=== PATIENT | male | born 1930 | race Caucasian/White ===

== ENCOUNTER 2016-09-05 14:32 | Emergency (ER) | payer MEDICARE ==
[~2016-09-05] VITALS: Ht 182.9 cm; Wt 86.4 kg
[~2016-09-05 14:32] MED LIST: AMLO-39 PO; DOCU250C2 PO; LEVO750T39 PO; LOV120 SUBQ; METO50TA3 PO; Nystatin PO
[2016-09-05 14:46] VITALS: BP 177/71; PULSE 57; RESP 20; O2SAT 96
--- NOTE | 2016-09-05 15:11 | ED.REPORT ---
HPI-Trauma Minor / Fall Date of Service Sep 05, 2016 ED Provider: Dr. Stefan Giraldo M.D. An 86 year old male with a medical history including thromboembolic disease, hypertension, and DVT on daily ASA presents to the ED accompanied by his son with head trauma after tripping while walking up stairs just prior to arrival. The patient hit the left side of his face on the deck and now reports left- sided facial pain, with a laceration above his left brow. The patient and his son deny LOC, vomiting, confusion, headache, or other symptoms. The patient has had similar falls in the past. Nursing Notes Stated Complaint: FALL/HEAD LACERATION Chief Complaint: Head, Face, Neck Trauma Nursing Notes Reviewed: Yes Allergies: Coded Allergies: No Known Allergies (Verified Allergy, Unknown, 05/02/14) Scheduled ([Nystatin]) 500,000 UNIT/5 ML SUSP 500,000 UNIT PO PCHS Amlodipine (Norvasc) 5 Mg Tablet 5 MG PO DAILY Docusate Sodium (Docusate Sodium) 250 Mg Capsule 250 MG PO BID Enoxaparin (Lovenox) 120 Mg/0.8 Ml Syringe 120 MG SUBQ DAILY Levofloxacin (Levofloxacin) 750 Mg Tablet 750 MG PO DAILY Metoprolol Tartrate (Metoprolol Tartrate) 50 Mg Tablet 50 MG PO BID General Time Seen by MD: 15:11 Chief Complaint Fall, Face injury Hx Obtained From: Patient, Son Arrived By: Walk-in Onset Occurred: Just prior to arrival Symptom Duration: Since onset Caused by: Accidental Location: Face Quality: Painful Severity: Current: Moderate Severity: Maximum: Moderate Pertinent Negative: Relieved by nothing Context: Immunizations Unknown Recent Healthcare: No recent doctor visit Similar Sx Previous: Yes Past Medical History Past Medical History 1. Thromboembolic disease. 2. Traumatic left shoulder rotator cuff tear and multiple left shoulder tendon tears while on anticoagulant therapy. a. Left shoulder hematoma. b. Acute volume loss due to left shoulder soft tissue bleeding. 3. Syncope due to acute volume loss (02/25/2014). 4. Gram-positive (Staphylococcus aureus) sepsis (02/27/2014). 5. Acute kidney injury. a. 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 b. Consider acute tubular necrosis due to sepsis, but no other sequela. 6. Hypokalemia in the context of interstitial nephritis. 7. Anemia. a. Acute blood loss anemia due to soft tissue bleeding (02/25/2014). b. Anemia of chronic disease (Staphylococcal sepsis). 8. Pancreatic cystic mass of uncertain etiology. CT of the abdomen (02/27/2014) showed an exophytic low density focus protruding superiorly from the pancreatic body/tail junction (20 mm diameter). This lesion demonstrates precontrast Hounsfield units of 1, and post contrast Hounsfield units of 15, suggestive of enhancement. No pancreatic ductal dilatation. No other lesions within the pancreas. No pancreatic calcifications. 9. Asymptomatic candiduria (03/17/2014). 10. Moderate protein calorie malnutrition. 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 Colonoscopy (03/03/2014) was essentially normal. Pseudo-obstruction resolved. 12. Severe deconditioning. 13. sepsis 14. rash 15. DVT Reports: Hypertension Past Surgical History Inguinal hernia: 1969 Smoking History Never Smoker Social History Alcohol Use: Denies alcohol use Drug Use: Denies drug use Other Social History: Good social support, , Lives in [facility] Ambulatory Status Cane Review of Systems Review of Systems Note: + Head trauma, left-sided facial pain, laceration above left brow Constitutional: Denies: Fever Respiratory: Denies: Non-productive cough, Shortness of breath Neurologic: Denies: Change LOC, Confusion, Headache Complete sys rev & neg: except as marked. GI: Denies: Nausea, Vomiting Physical Exam Initial Vital Signs Vital Signs (First) Date Time Temp Pulse Resp B/P Pulse Ox O2 Delivery O2 Flow Rate FiO2 09/05/16 14:46 36.1 57 20 177/71 96 Room Air Initial VS: Reviewed Skin: Warm, Dry, No cyanosis Psychiatric: Mood/affect normal, Behavior normal, Normal thought content General/Constitutional: Awake, Alert, No acute distress Answering questions appropriately Neck: Supple, Full range of motion, Non-tender Head / Eyes: Normocephalic, PERRL (3mm bilaterally) Trauma - General: Positive: Abrasion (Overlying laceration), Laceration (3cm, oozing blood, about left forehead just above brow extending down to subcutaneous tissue, no galea involvement) Scalp atraumatic ENT: Atraumatic (No interoral or dental trauma), Airway patent, Mucous membranes moist Respiratory / Chest: Atraumatic, Breath sounds NL, Breath sounds = bilat, No respiratory distress Cardiovascular: Heart rate NL, Regular rhythm, Heart sounds NL, No gallop, No murmurs, No rubs, Peripheral circulation NL (Good radial pulses) Abdomen: Atraumatic, Soft, Non-tender, No distention Back: Atraumatic, Inspection NL, No midline vertebral tend Flank / Spine / Paraspinal: Positive: Lumbar paraspinal tend... (Mild, left) Upper Extremity / MS: Inspection NL, Full range of motion, Neurologic intact, Vascular intact (Good distal pulses) 4cm x 5cm skin tear to left lateral upper arm Lower Extremity / Pelvis / MS: Atraumatic, Inspection NL, Full range of motion Neurologic: Oriented X3, Speech NL, No motor deficits, No sensory deficits Interpretation & Diagnostics CT Head Interpretation IMPRESSION: 1. No acute intracranial process. 2. Moderate atrophy and chronic microvascular ischemic changes. 3. Small left frontal scalp laceration. Dictated by: Rosamaria Gomez M.D. on 09/05/2016 at 15:55 Study: Head CT no contrast Interpretation / Wet Read by: Interpret - Radiologist Procedures Laceration Management Time: 16:45 Procedure Performed by: Allied health pract ([facility]IL[facility]) Consent / Setup / Site Prep: Consent from patient, Time-out performed, Hand hygiene observed, Stand sterile technique Location of Wound: Left forehead just above brow extending down to subcutaneous tissue Wound Length: 3 cm Local Anesthesia: Lidocaine w epi 1% (3mL) Wound Preparation: Normal saline Debridement: None Irrigation: 250 cc Foreign Body Explore / Removal: Explored for foreign body Repair Skin: ___ O (6), Nylon # Sutures - Skin: 8 Closure Layers: 1 Suture Technique: Simple Post-Procedure / Complications: Antibiotic oint applied, Dressing applied, No complications, Condition improved, Tolerated procedure well, Patient stable Laceration Management: Used Steri-Strips Time: 16:45 Procedure Performed by: Allied health pract ([facility]IL[facility]) Consent / Setup / Site Prep: Consent from patient, Time-out performed, Hand hygiene observed, Stand sterile technique Location of Wound: 4cm x 5cm skin tear to left lateral upper arm Wound Preparation: Normal saline Irrigation: Copious Closure Layers: 1 Post-Procedure / Complications: Antibiotic oint applied, Dressing applied, No complications, Condition improved, Tolerated procedure well, Patient stable Re-Eval/Medical Decision Med Decision/Clinical Course Patient is an 86-year-old male in relatively good health who presents to the emergency department with his son for evaluation of a left forehead laceration and left arm skin tear after sustaining a mechanical ground-level fall. He is on aspirin though he does not take any other blood thinners. He did not lose consciousness after the fall and he has not had any vomiting or altered mental status. Here in the emergency department he is afebrile with stable vital signs , normal neurologic assessment and examination as above. Of note he has a significant laceration to his left forehead but no other signs of trauma and neck without midline cervical tenderness, bony deformity or limited range of motion. CT scan of the head demonstrates no acute intracranial process or hemorrhage. His tetanus status was updated. His wound was anesthetized using lidocaine and copiously irrigated. His forehead laceration was repaired as documented above. His skin tear was approximated to the best of our efforts using Steri-Strips. He tolerated the procedures well. He currently resides at an assisted living facility and nursing staff there will be able to remove his sutures in 5-7 days. He is advised to return immediately for any headache, confusion, vomiting, weakness or signs of infection. Prior to discharge follow- up and return precautions were reviewed in detail with the patient and his son who verbalized understanding and agreement with the plan. The patient was discharged in stable condition. Source of Hx: Old records Re-Evaluation/Progress : Time of Eval: 15:53 Patient Status: Condition improved Re-Evaluation/Progress Note: Discussed with patient CT results, diagnosis, and plan for discharge after laceration repair. Follow-up and return to the ER instructions given. Patient agrees with plan for care and all questions were addressed. Counseled Regarding: Diagnosis, Need for follow-up, When/why to return to ED Discharge & Departure Impression: Primary Impression: Laceration of forehead Encounter type: initial encounter Qualified Code: S01.81XA - Laceration without foreign body of other part of head, initial encounter Additional Impressions: Fall from ground level Abrasion of forehead Encounter type: initial encounter Qualified Code: S00.81XA - Abrasion of other part of head, initial encounter Disposition: Home Discharge Condition All VS Reviewed: Yes Condition: Improved Patient Instructions: Laceration (ED) Additional Instructions: Thank you for seeking care at the emergency room. You were seen today for a forehead laceration after a ground level fall. Our primary goal today in the ED was to evaluate you for any life-threatening conditions. Your evaluation was reassuring. Your stitches will need to be removed in 7-10 days. The nurses at your assisted living facility can do this. You should follow-up with your primary doctor in the next week. You should return to the ED immediately if you develop redness, swelling, fevers , confusion, vomiting, cough, shortness of breath, chest pain, lightheadedness, weakness or any other concerning signs or symptoms. Thank you for letting us partake in your care today. Referrals: Adalgisa Herrera MD (PCP) Scribe Attestation Portions of this note were transcribed by Shelli Marcos. I, Dr. Giraldo, personally performed the history, physical exam, and medical decision-making; I reviewed and confirmed the accuracy of the information in the transcribed note. Signed by: Herminia Freedman, 09/05/2016, 17:40 copies to: Adalgisa Herrera MD, Beck O MD Sep 05, 2016 15:11 SHELLI MARCOS Sep 05, 2016 15:34
[2016-09-05] MEDS ORDERED: Lidocaine 1%/Epi 1:100,000 30 mL MDV SUBQ ONE (15:15)
[2016-09-05] MEDS ORDERED: TdaP Vaccine 0.5 mL Inj IM ONE (15:15)
[2016-09-05] MEDS ORDERED: Lidocaine 1%-Epi 1:100,000 20 mL Inj ONE (15:55)
--- NOTE | 2016-09-05 15:58 | DRSVH ---
PROCEDURE: CT BRAIN WITHOUT CONTRAST ([id number]) INDICATIONS: trauma TECHNIQUE: Noncontrast 4.5 mm thick angled axial sections acquired from the foramen magnum to the vertex, with c oronal reformats. COMPARISON: None. FINDINGS: Image quality: Excellent. CSF spaces: Basal cisterns are patent. No extra-axial fluid collections. The ventricles are symmet jesus manuel in size and shape. Brain: No intracranial bleeds or masses. There is cerebral volume loss for age, with resultant vent ricular and sulcal prominence. There are periventricular and deep white matter chronic small vessel ischemic changes. There is intracranial internal carotid artery atherosclerosis. Skull and face: Calvarium and visualized facial bones appear intact, without suspicious lesions. Sm all left frontal scalp laceration. Sinuses: Visualized sinuses and mastoids are clear. IMPRESSION: 1. No acute intracranial process. 2. Moderate atrophy and chronic microvascular ischemic changes. 3. Small left frontal scalp laceration. Dictated by: Rosamaria Gomez M.D. on 09/05/2016 at 15:55 Approved by: Rosamaria Gomez M.D. on 09/05/2016 at 15:56
== END 2016-09-05 17:35 | disposition home or self-care (01) ==
LOC: SED 14:32
DX: S01.81XA Laceration without foreign body of other part of head, initial encounter (principal); S00.81XA Abrasion of other part of head, initial encounter; W10.8XXA Fall (on) (from) other stairs and steps, initial encounter; Y93.01 Activity, walking, marching and hiking; Y92.89 Other specified places as the place of occurrence of the external cause; Y99.8 Other external cause status; I10 Essential (primary) hypertension; Z86.19 Personal history of other infectious and parasitic diseases; Z79.899 Other long term (current) drug therapy; Z23 Encounter for immunization

== ENCOUNTER 2016-09-15 22:02 | Inpatient (IN) | payer MEDICARE ==
[~2016-09-15] VITALS: Ht 182.9 cm; Wt 81.9 kg
--- NOTE | 2016-09-15 22:02 | ED.REPORT ---
HPI-General Illness Date of Service September 15, 2016 ED Provider: Caden Patel MD 86 year old Prednisone-dependent male with a history of DVT, previously on anticoagulation therapy presents to the ER via EMS from [facility] due to generalized weakness onset today. Patient is independently ambulatory at baseline but states that he has lately been unable to walk due to profound weakness. He denies chest pain, nausea, vomiting, cough , changes in vision, abdominal pain, and changes in bowel or urinary habits. Nurses at [place] deny any known recent illness, or fever. BP in the 180's en route. He takes 20mg Prednisone daily for his arthritis. Nursing Notes Stated Complaint: WEAKNESS Nursing Notes Reviewed: Yes Allergies: Coded Allergies: No Known Allergies (Verified Allergy, Unknown, 05/02/14) Scheduled Amlodipine (Norvasc) 5 Mg Tablet 5 MG PO DAILY Enoxaparin (Lovenox) 120 Mg/0.8 Ml Syringe 120 MG SUBQ DAILY Metoprolol Tartrate (Metoprolol Tartrate) 50 Mg Tablet 50 MG PO BID General Time Seen by MD: 22:01 Chief Complaint Weakness Hx Obtained From: Patient, EMS Arrived By: Ambulance Sudden in Onset?: No Onset Occurred: 5 - 8 hours ago Symptom Duration: Since onset Pertinent Negative: Pt denies other symptoms Similar Sx Previous: No Past Medical History Past Medical History 1. Thromboembolic disease. 2. Traumatic left shoulder rotator cuff tear and multiple left shoulder tendon tears while on anticoagulant therapy. a. Left shoulder hematoma. b. Acute volume loss due to left shoulder soft tissue bleeding. 3. Syncope due to acute volume loss (02/25/2014). 4. Gram-positive (Staphylococcus aureus) sepsis (02/27/2014). 5. Acute kidney injury. a. 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 b. Consider acute tubular necrosis due to sepsis, but no other sequela. 6. Hypokalemia in the context of interstitial nephritis. 7. Anemia. a. Acute blood loss anemia due to soft tissue bleeding (02/25/2014). b. Anemia of chronic disease (Staphylococcal sepsis). 8. Pancreatic cystic mass of uncertain etiology. CT of the abdomen (02/27/2014) showed an exophytic low density focus protruding superiorly from the pancreatic body/tail junction (20 mm diameter). This lesion demonstrates precontrast Hounsfield units of 1, and post contrast Hounsfield units of 15, suggestive of enhancement. No pancreatic ductal dilatation. No other lesions within the pancreas. No pancreatic calcifications. 9. Asymptomatic candiduria (03/17/2014). 10. Moderate protein calorie malnutrition. 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 Colonoscopy (03/03/2014) was essentially normal. Pseudo-obstruction resolved. 12. Severe deconditioning. 13. sepsis 14. rash 15. DVT Reports: Hypertension Past Surgical History Inguinal hernia: 1970 Smoking History Never Smoker Social History Alcohol Use: Denies alcohol use Drug Use: Denies drug use Other Social History: Good social support, , Lives in [facility] Ambulatory Status Cane Review of Systems Full Review of Systems Constitutional: Reports: Weakness - generalized, Denies: Chills, Fever Respiratory: Denies: Non-productive cough, Shortness of breath Cardiovascular: Denies: Chest pain GI: Denies: Abdominal pain, Constipation, Diarrhea, Nausea, Vomiting Male: Denies Dysuria, Denies Hematuria Complete sys rev & neg: except as marked. Physical Exam Vital Signs Vital Signs Date Time Temp Pulse Resp B/P Pulse Ox O2 Delivery O2 Flow Rate FiO2 09/16/16 00:03 63 13 172/45 96 Room Air 09/15/16 22:05 36.9 67 18 182/53 98 Initial VS: Reviewed Neck: Supple, Non-tender, Full range of motion Abdomen / GI: Soft, Non-tender, No guarding, No rebound, No distention Skin: Warm, Dry, No cyanosis Neurologic: Alert, Oriented, Nonfocal General/Constitutional: Awake, Alert, Well developed Respiratory / Chest: Breath sounds NL, No respiratory distress, No rales, No rhonchi, No wheezing Cardiovascular: Heart rate NL, No murmurs Heart Rate / Rhythm: Positive: Irregular rhythm Lower Ext Edema: Positive: Bilateral 1+ Upper Extremities Upper Extremity / MS: Full range of motion, Neurologic intact, Vascular intact Arthritic changes of the joints. Wrist / Hand: Full range of motion, Neurologic intact, Vascular intact Arthritic changes of the joints. Lower Extremity / Pelvis / MS: Full range of motion, Neurologic intact, Vascular intact Arthritic changes of the joints. Interpretation & Diagnostics Lab Results Interpretation Result Diagram: 09/15/16 2210 09/15/16 2210 Test 09/15/16 22:10 09/16/16 00:00 White Blood Count 12.4th/mm3 (3.8-10.1) Red Blood Count 5.05mil/mm3 (4.40-5.80) Hemoglobin 15.1g/dL (13.8-17.2) Hematocrit 43.4% (41.0-50.0) Mean Corpuscular Volume 85.9fL (81-100) Mean Corpuscular Hemoglobin 29.9pg (27.0-35.0) Mean Corpuscular Hemoglobin Concent 34.8% (32.0-37.0) Red Cell Distribution Width 13.3% (12.3-15.4) Platelet Count 267bil/L (150-400) Neutrophils (%) (Auto) 75.4% (40-74) Lymphocytes (%) (Auto) 16.9% (14-46) Monocytes (%) (Auto) 6.9% (4-12) Eosinophils (%) (Auto) 0.2% (0-5) Basophils (%) (Auto) 0.2% (0-3) Hold Purple Top Tube Received (Received) Hold Blue Top Tube Received (Received) Sodium Level 139mEq/L (134-144) Potassium Level 4.1mEq/L (3.5-5.2) Chloride Level 103mEq/L (97-108) Carbon Dioxide Level 22mmol/L (18-29) Blood Urea Nitrogen 28mg/dL (8-27) Creatinine 1.07mg/dL (0.76-1.27) Estimat Glomerular Filtration Rate 69mL/min (>59) Glucose Level 104mg/dL (60-99) Lactic Acid Level 1.1mmol/L (0.4-2.0) Uric Acid 6.4mg/dL (2.6-7.2) Calcium Level 9.0mg/dL (8.5-10.1) Magnesium Level 2.0mg/dL (1.6-2.6) Total Bilirubin 0.7mg/dL (0.0-1.2) Aspartate Amino Transf (AST/SGOT) 14U/L (0-50) Alanine Aminotransferase (ALT/SGPT) 7U/L (0-44) Alkaline Phosphatase 45U/L (25-160) Ammonia 34ug/dL (18-53) Troponin T 0.026ug/L (0.0-0.011) Total Protein 6.3g/dL (6.4-8.4) Albumin 3.8g/dL (3.4-5.0) Thyroid Stimulating Hormone (TSH) 2.360uIU/mL (0.450-4.500) Hold Red Top Tube Received (Received) Hold Forbes Top Tube Received (Received) Alcohols < 10mg/dL (0-10) Urine Color Yellow (YELLOW) Urine Appearance Clear (CLEAR,HAZY) Urine pH 6.5 (5.0-8.0) Urine Specific [place] 1.015 (1.003-1.035) Urine Protein Negativemg/dL (NEG,TRACE) Urine Glucose (UA) Negativemg/dL (NEGATIVE) Urine Ketones Negativemg/dL (NEGATIVE) Urine Occult Blood Negative (NEGATIVE) Urine Nitrite Negative (NEGATIVE) Urine Bilirubin Negative (NEGATIVE) Urine Urobilinogen 1.0mg/dL (NORMAL) Urine Leukocyte Esterase Negative (NEGATIVE) Urine RBC 0-2/hpf (0-2) Urine WBC 0-5/hpf (0-5) Urine Epithelial Cells Occasional/hpf (NONE-MOD) Urine Crystals None seen (NONE SEEN) Urine Bacteria None/hpf (NONE-FEW) Urine Hyaline Casts None/lpf (NONE) Urine Granular Casts None seen (NONE SEEN) Urine Waxy Casts None seen (NONE SEEN) Urine Red Blood Cell Casts None seen (NONE SEEN) Urine White Blood Cell Casts None seen (NONE SEEN) Urine Mucus None seen (None Seen) Urine Trichomonas None seen (NONE SEEN) Urine Yeast None (NONE SEEN) Urinalysis Comment None Urine Culture Reflexed Not indicated ECG Interpretation ECG Interpretation: Nonspecifc ST T wave changes infralaterally [id number] Time: 22:55 Interpreted by: ED physician X-Ray Chest Interpretation Chest Xray Interpretation: No explaination for weakness on acquired film. Heart size is borderline. Nothing acute. View: Portable, 1 view Interpretation / Wet Read by: Wet read ED physician CT Head Interpretation CONCLUSION: Moderate, chronic, age-related findings. Nonspecific ethmoid and maxillary sinus disease, likely chronic. No acute intracranial abnormality. Electronically signed by Joanna Cesar MD Study: Head CT no contrast Interpretation / Wet Read by: Interpret - Radiologist Re-Eval/Medical Decision Med Decision/Clinical Course 86-year-old fairly functional man presents with loss of ambulation and generalized weakness today. He was functioning pre-well in assisted living yesterday, with full ADLs and minimal assistance. Today, he is required to her tenderness to get him up and walking and he is unable walk unassisted even once gotten onto his feet. Apparently, he is not in atrial fibrillation known in the past. He is an age fibrillation on arrival here, though at a controlled rate. He has some mild edema of his legs. I suspect that loss of atrial kick has been the cause of his physical decline. He is admitted now for completion of rule out protocol, initially negative, and echocardiography this morning to evaluate cardiac function and chamber size. He was intolerant of Coumadin in the past, with significant skin bleeding and scarring, and would therefore defer anticoagulation at this point. Additionally, he has had multiple falls in the last month, at least three or four that the family knows of. This renders him a higher risk candidate for anticoagulation additionally. CT of the cranium was negative, and his neck is negative to palpation. However, he has a large scab on his left forehead sustained in a fall a week ago. Source of Hx: Old records Time of Eval: 01:21 Re-Evaluation/Progress Note: Discussed lab and imaging results and need for admission. Patient is amenable to the plan. All other questions addressed. Consultation : Referral / Consult Name: Yuriy Curiel MD Consulted With: Hospitalist Call Returned at: 01:46 Jailor: Agrees with eval, Agrees with plan, Accepts admit Counseled Regarding: Diagnosis, Lab results, Need for admission Discharge & Departure Primary Impression: New onset atrial fibrillation Additional Impressions: Weakness Abrasion of forehead Multiple falls Disposition: ADMITTED TO HOSPITAL Discharge Condition All VS Reviewed: Yes Condition: Stable Referrals: Adalgisa Herrera MD (PCP) Herminia Attestation Portions of this note were transcribed by Marv Wahl. I, Dr. Patel, personally performed the history, physical exam and medical decision-making; I reviewed and confirmed the accuracy of the information in the transcribed note. Signed by: Herminia Beckett, 09/16/2016 at 01:46 copies to: Adalgisa Herrera MD, Christopher W MD September 15, 2016 22:02 MARV WAHL September 15, 2016 22:09
[2016-09-15 22:05] VITALS: BP 182/53; PULSE 67; RESP 18; O2SAT 98
[2016-09-15 22:18] LABS: BASOPHILS % (AUTO) 0.2 % (0-3); EOSINOPHILS % (AUTO) 0.2 % (0-5); MONOCYTES % (AUTO) 6.9 % (4-12); Mean Corpuscular Hemoglobin 29.9 pg (27.0-35.0); Mean Corpuscular Volume 85.9 fL (81-100); NEUTROPHILS % (AUTO) 75.4 % (40-74); Platelet Count 267 bil/L (150-400)
[2016-09-16] VITALS (11 sets, daily range): BP systolic 114–176; BP diastolic 45–69; PULSE 52–76; RESP 13–27; O2SAT 93–100
[2016-09-16 00:20] LABS: APPEARANCE,URINE CLEAR (CLEAR,HAZY); COLOR,URINE YELLOW (YELLOW); OCCULT BLOOD,URINE NEGATIVE (NEGATIVE); PH,URINE 6.5 (5.0-8.0)
[2016-09-16] MEDS ORDERED: Polyethylene Glycol (PEG) 17 Gm Powder PO PRN (01:50)
[2016-09-16] MEDS ORDERED: Alum-Mag Hydrox-Simeth 30 mL Suspension PO PRN (01:50)
[2016-09-16] MEDS ORDERED: Ondansetron 2 mg/mL 2 mL Inj IVPUSH PRN (01:50)
--- NOTE | 2016-09-16 04:43 | PCM.HPMED ---
Subjective Date of Service September 16, 2016 Primary Provider: Admitting Physician: Primary Care Physician: Adalgisa Herrera MD Attending Physician: Admit Status: From the Emergency Department, Full Admit, [facility] Telemetry Chief Complaint: Acute weakness History of Present Illness: Kuldeep Mccartney 86 year old male with Thromboembolic disease with DVT, Hypertension , who presents to [facility] emergency department via EMS from [facility] due to generalized weakness onset today. Patient is independently ambulatory at baseline but states that he has lately been unable to walk due to profound weakness within the last 3 days. He denies chest pain, nausea, vomiting, cough, changes in vision, abdominal pain, and changes in bowel or urinary habits. Nurses at [facility] deny any known recent illness, or fever. BP in the 180's en route. No new medications started. Patient seems to think its old age and deconditioning. He denies any palpitations. Case discussed with Dr Patel, EKG showed Atrial fibrillation (new) and will be admitted to workup cause of weakness Review of Systems: Pertinent positives as noted in HPI. All other systems were reviewed and are negative Allergies Coded Allergies: No Known Allergies (Verified Allergy, Unknown, 05/02/14) Home Medications From [facility], not yet confirmed Kuldeep Mccartney N. [id number] 1930 05/21/2016 09:10 AM Page: 05/13 Acidophilus capsule 2tabs 2 times daily amlodipine 5 mg tablet take 1 tablet by oral route every day clobetasol 0.05 % topical solution apply by topical route 2 times every day to the affected scalp area in the morning and evening docusate sodium 250 mg capsule take 1 capsule by oral route 2 times every day dronabinol 2.5 mg capsule take 2.5 milligram by oral route 2 times every day fluocinonide 0.05 % topical ointment apply by topical route 2 times every day to the affected area(s) Klor-Con M20 mEq tablet,extended release take 1 tablet by oral route 2 times every day with food Lovenox 120 mg/0.8 mL subcutaneous syringe inject 120 mg by subcutaneous route every day subcutaneously metoprolol tartrate 50 mg tablet take 1 tablet by oral route 2 times every day with meals mirtazapine 7.5 mg tablet take 2 tablet by oral route every day at bedtime PMH 1. Thromboembolic disease. 2. Traumatic left shoulder rotator cuff tear and multiple left shoulder tendon tears while on anticoagulant therapy. a. Left shoulder hematoma. b. Acute volume loss due to left shoulder soft tissue bleeding. 3. Syncope due to acute volume loss (02/25/2014). 4. Gram-positive (Staphylococcus aureus) sepsis (02/27/2014). 5. Acute kidney injury. a. 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 b. Consider acute tubular necrosis due to sepsis, but no other sequela. 6. Hypokalemia in the context of interstitial nephritis. 7. Anemia. a. Acute blood loss anemia due to soft tissue bleeding (02/25/2014). b. Anemia of chronic disease (Staphylococcal sepsis). 8. Pancreatic cystic mass of uncertain etiology. CT of the abdomen (02/27/2014) showed an exophytic low density focus protruding superiorly from the pancreatic body/tail junction (20 mm diameter). This lesion demonstrates precontrast Hounsfield units of 1, and post contrast Hounsfield units of 15, suggestive of enhancement. No pancreatic ductal dilatation. No other lesions within the pancreas. No pancreatic calcifications. 9. Asymptomatic candiduria (03/17/2014). 10. Moderate protein calorie malnutrition. 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 Colonoscopy (03/03/2014) was essentially normal. Pseudo-obstruction resolved. 12. Severe deconditioning. 13. sepsis 14. rash 15. DVT 16. Hypertension . Surgical History Inguinal hernia: 1970 Social History Hx Alcohol Use: No Hx Substance Use: No Hx Tobacco Use: No Smoking Status: Never Smoker Living Arrangement: Assisted Living ([place]) Exam Vital Signs Vital Sign - Last Date Time Temp Pulse Resp B/P Pulse Ox O2 Delivery O2 Flow Rate FiO2 09/16/16 00:03 63 13 172/45 96 Room Air 09/15/16 22:05 36.9 Exam General: Alert, Oriented X3, Cooperative, No acute Distress Eyes: PERRLA, Scleral Anicteric Mouth: Mouth Normal, Mucous Membranes Moist/[place] Neck: Supple, no Thyromegaly, trachea central. Chest & Lungs: Clear to auscultation & percussion, No adventitious breath sounds, no crackles, no wheeze Cardiovascular: Normal S1, Normal S2, No Murmurs/Rubs/Gallops, Regular Rate/ Rhythm, Murmur, Other (No JVD, no peripheral edema) Pulses: Radial (present and equal), Dorsalis Pedi (present and equal) Abdomen: Soft, Non-tender, Non-distended, Normoactive bowel tones. Musculoskeletal: Unremarkable. Normal range of motion, no swollen or erythematous joints Extremities: No edema, no cyanosis, no clubbing. Skin: No rashes. Warm and dry, no erythematous areas Neurological: Grossly neurologically intact, has generalized weakness, Normal Speech, Sensation Intact Lymphatic: Lymph nodes Cervical and Axillary not palpable. Lab and Diagnostics Labs Laboratory Tests Test 09/15/16 22:10 09/16/16 00:00 White Blood Count 12.4th/mm3 (3.8-10.1) Red Blood Count 5.05mil/mm3 (4.40-5.80) Hemoglobin 15.1g/dL (13.8-17.2) Hematocrit 43.4% (41.0-50.0) Mean Corpuscular Volume 85.9fL (81-100) Mean Corpuscular Hemoglobin 29.9pg (27.0-35.0) Mean Corpuscular Hemoglobin Concent 34.8% (32.0-37.0) Red Cell Distribution Width 13.3% (12.3-15.4) Platelet Count 267bil/L (150-400) Neutrophils (%) (Auto) 75.4% (40-74) Lymphocytes (%) (Auto) 16.9% (14-46) Monocytes (%) (Auto) 6.9% (4-12) Eosinophils (%) (Auto) 0.2% (0-5) Basophils (%) (Auto) 0.2% (0-3) Hold Purple Top Tube Received (Received) Hold Blue Top Tube Received (Received) Sodium Level 139mEq/L (134-144) Potassium Level 4.1mEq/L (3.5-5.2) Chloride Level 103mEq/L (97-108) Carbon Dioxide Level 22mmol/L (18-29) Blood Urea Nitrogen 28mg/dL (8-27) Creatinine 1.07mg/dL (0.76-1.27) Estimat Glomerular Filtration Rate 69mL/min (>59) Glucose Level 104mg/dL (60-99) Lactic Acid Level 1.1mmol/L (0.4-2.0) Uric Acid 6.4mg/dL (2.6-7.2) Calcium Level 9.0mg/dL (8.5-10.1) Total Bilirubin 0.7mg/dL (0.0-1.2) Aspartate Amino Transf (AST/SGOT) 14U/L (0-50) Alanine Aminotransferase (ALT/SGPT) 7U/L (0-44) Alkaline Phosphatase 45U/L (25-160) Ammonia 34ug/dL (18-53) Total Protein 6.3g/dL (6.4-8.4) Albumin 3.8g/dL (3.4-5.0) Hold Red Top Tube Received (Received) Hold [place] Top Tube Received (Received) Alcohols < 10mg/dL (0-10) Urine Color Yellow (YELLOW) Urine Appearance Clear (CLEAR,HAZY) Urine pH 6.5 (5.0-8.0) Urine Specific [place] 1.015 (1.003-1.035) Urine Protein Negativemg/dL (NEG,TRACE) Urine Glucose (UA) Negativemg/dL (NEGATIVE) Urine Ketones Negativemg/dL (NEGATIVE) Urine Occult Blood Negative (NEGATIVE) Urine Nitrite Negative (NEGATIVE) Urine Bilirubin Negative (NEGATIVE) Urine Urobilinogen 1.0mg/dL (NORMAL) Urine Leukocyte Esterase Negative (NEGATIVE) Urine RBC 0-2/hpf (0-2) Urine WBC 0-5/hpf (0-5) Urine Epithelial Cells Occasional/hpf (NONE-MOD) Urine Crystals None seen (NONE SEEN) Urine Bacteria None/hpf (NONE-FEW) Urine Hyaline Casts None/lpf (NONE) Urine Granular Casts None seen (NONE SEEN) Urine Waxy Casts None seen (NONE SEEN) Urine Red Blood Cell Casts None seen (NONE SEEN) Urine White Blood Cell Casts None seen (NONE SEEN) Urine Mucus None seen (None Seen) Urine Trichomonas None seen (NONE SEEN) Urine Yeast None (NONE SEEN) Urinalysis Comment None Urine Culture Reflexed Not indicated Microbiology 09/15/16 Blood Culture, Received Pending Result Diagram: 09/15/16220909/15/162209 Assessment & Plan Kuldeep Mccartney 86 year old male with Thromboembolic disease with DVT, Hypertension , who presents to [facility] emergency department via EMS from [facility] assisted living facility due to generalized weakness 1. New Atrial fibrillation. Present on admission Etiology likely due to longstanding Hypertension and age. No rapid ventricular response. CHADS2 score 1 (Hypertension) no anticoagulations indicated. Rule out Thyrotoxicosis and underlying ischemia heart disease. - monitor on telemetry - continuing Metoprolol 50 mg bid for rate control - complete echo in the morning - troponin x 3 - checking TSH - daily Aspirin 2 Generalized weakness. Present on admission Likely relate to Atrial fibrillation. No evidence of Urinary tract infection. No metabolic derangements noted - Physical therapy and motion picture set up worker consult 3 Hypertension - continue Amlodipine 5 mg daily 4 Thromboembolic disease Patient was supposedly on Lovenox but currently not on any anticoagulations - Acetaminophen as needed for mild pain/fever/headache - Bowel regimen as needed - Antiemetic as needed Patient admitted under inpatient status with expected length of stay > 2 midnights for severity of present symptoms, complexities of treatment plan and risk for adverse event . Resuscitation Status: CPR: Attempt Resuscitation Yuriy Curiel MD September 16, 2016 01:56
--- NOTE | 2016-09-16 06:37 | NUR ---
Admit/Tele Pt admitted to room 2025 at around 0300. Placed on tele, oriented to room and able to answer admit questions though did not have med list/containers and was unable to identify doses/current meds. States daughter can bring list in morning. No external med list seen. Tele SBrady 50s-60s, lunchroom monitor also reported HR in high 30s w/ junctional beats but not sustaining. notified. Pt has denied any pain since admit to floor. Appears to be sleeping comfortably reporting no symptoms. Addendum: 09/16/16 at 0644 by GRDAY OLIVEIRA RN Pt also has 1st degree AVB and IVCD per lunchroom monitor
--- NOTE | 2016-09-16 07:18 | DRSVH ---
PROCEDURE: CT BRAIN WITHOUT CONTRAST ([id number]) INDICATIONS: fall, weak, altered ms TECHNIQUE: Noncontrast 4.5 mm thick angled axial sections acquired from the foramen magnum to the vertex, with c oronal reformats. COMPARISON: [facility], CT, CT BRAIN WO CON, 09/05/2016, 15:32. FINDINGS: Image quality: Excellent. CSF spaces: Basal cisterns are patent. No extra-axial fluid collections. The ventricles are symmet jesus manuel in size and shape. Brain: No intracranial bleeds or masses. There is moderate cerebral volume loss for age, with resul tant ventricular and sulcal prominence. There are moderate periventricular and deep white matter chr onic small vessel ischemic changes. There is intracranial internal carotid artery atherosclerosis. Skull and face: Calvarium and visualized facial bones appear intact, without suspicious lesions. Sinuses: There is left maxillary and ethmoid sinus apical thickening. The mastoids are clear. IMPRESSION: 1. No acute intracranial abnormalities. 2. Cerebral volume loss and chronic microvascular ischemic changes. 3. Left maxillary and ethmoid sinus disease. No significant discrepancy with the merchandiser radiology preliminary report. Dictated by: Chris Melendez M.D. on 09/16/2016 at 7:13 Approved by: Chris Melendez M.D. on 09/16/2016 at 7:16
--- NOTE | 2016-09-16 07:56 | DRSVH ---
PROCEDURE: X-RAY CHEST ONE VIEW, PORTABLE ([id number]) INDICATIONS: altered mental status, weak TECHNIQUE: One view of the chest was acquired. COMPARISON: [facility], , CHEST 1VW (PORTABLE), 05/02/2014, 19:29. FINDINGS: Surgical changes and devices: None. Lungs and pleura: No pleural effusions or pneumothorax. Lungs are clear. Mediastinum: Mediastinal contours appear normal. Heart size is normal. Bones and chest wall: No suspicious bony lesions. Overlying soft tissues appear unremarkable. IMPRESSION: Stable normal chest. Dictated by: Hardeep Marte M.D. on 09/16/2016 at 7:49 Approved by: Hardeep Marte M.D. on 09/16/2016 at 7:50
[2016-09-16] MEDS: Heparin 5,000 Unit/mL Inj SUBQ SCH ×2 (08:22→16:39)
[2016-09-16 08:49] LABS: Mean Corpuscular Hemoglobin 30.1 pg (27.0-35.0); Mean Corpuscular Volume 91.1 fL (81-100)
[2016-09-16 09:33] LABS: TROPONIN T 0.033 ug/L (0.0-0.011)
[2016-09-16] MEDS ORDERED: METO25TA99 PO (14:14)
[2016-09-16] MEDS ORDERED: CITA20TA PO (14:17)
[2016-09-16] MEDS ORDERED: ASPI325T32 PO (14:17)
[2016-09-16] MEDS ORDERED: GABA-500 PO (14:17)
[2016-09-16] MEDS ORDERED: LISI-567 PO (14:17)
[2016-09-16] MEDS ORDERED: PRED-508 PO (14:19)
--- NOTE | 2016-09-16 15:46 | PCM.PNMED ---
Subjective Date of Service September 16, 2016 Subjective Kuldeep Mccartney is an 86-year-old gentleman with a history of thromboembolic disease with prior DVT, hypertension, anemia, malnutrition and pancreatic cystic mass of uncertain etiology identified on CT abdomen (02/27/14) who presented from [facility] living [facility] due to generalized weakness. Admitted for presumably new onset atrial fibrillation and weakness. Admitted to [facility] with sinus bradycardia, HR in high 30s-50s as well as first degree AV block and interventricular conduction delay noted on telemetry. Today patient reports lightheadedness upon standing and generalized weakness increasing in the last 6months to a year. He attributes his symptoms to old age and deconditioning. He denies chest pain, palpitations, shortness of breath, fever, chills, abdominal pain, nausea or vomiting. Exam Vital Signs Vital Sign - Last Date Time Temp Pulse Resp B/P Pulse Ox O2 Delivery O2 Flow Rate FiO2 09/16/16 05:14 36.6 61 18 170/69 95 Room Air Intake and Output 09/15/16 09/15/16 09/16/16 Cumulative From/Thru 15:00 23:00 07:00 09/15/16 22:05 - 09/16/16 06:07 Intake Total 100 ml 100 ml Output Total 150 ml 150 ml Balance -50 ml -50 ml Intake Oral 100 ml 100 ml Output Urine Total 150 ml 150 ml # Voids 1 1 # Bowel Movements 0 0 Exam General: Well-appearing, elderly male in no acute distress. Alert, Oriented X3 , Cooperative, No acute Distress HEENT: Normocephalic, contusion of forehead on left just above eyebrow with dried blood, PERRLA, no scleral icterus. Mucosa moist/pink. Neck: Supple, nontender, no JVD. Cardiovascular: Regular Rate/Rhythm, normal S1/S2, no murmurs, rubs or gallops appreciated Pulmonary: Symmetric chest rise, normal breath sounds, lungs clear to auscultation bilaterally with no wheezing, rales or rhonchi. Abdomen: Soft, non-tender, non-distended, bowel tones present. Extremities: No edema, no cyanosis, no clubbing. Skin: Warm and dry, no erythema, rashes or ulcerations. Neurological: Generalized weakness without focal deficit. Normal Speech. Psychiatric: Alert and oriented to person, place and time. Normal mood/affect. IVs and Medications Medications Reviewed: Medications were reviewed in detail Lab and Diagnostics Laboratory Tests Test 09/15/16 22:10 09/16/16 00:00 09/16/16 08:25 09/16/16 13:50 White Blood Count 12.4th/mm3 (3.8-10.1) 5.2th/mm3 (3.8-10.1) Red Blood Count 5.05mil/mm3 (4.40-5.80) 4.25mil/mm3 (4.40-5.80) Hemoglobin 15.1g/dL (13.8-17.2) 12.8g/dL (13.8-17.2) Hematocrit 43.4% (41.0-50.0) 38.7% (41.0-50.0) Mean Corpuscular Volume 85.9fL (81-100) 91.1fL (81-100) Mean Corpuscular Hemoglobin 29.9pg (27.0-35.0) 30.1pg (27.0-35.0) Mean Corpuscular Hemoglobin Concent 34.8% (32.0-37.0) 33.1% (32.0-37.0) Red Cell Distribution Width 13.3% (12.3-15.4) 13.2% (12.3-15.4) Platelet Count 267bil/L (150-400) 174bil/L (150-400) Neutrophils (%) (Auto) 75.4% (40-74) Lymphocytes (%) (Auto) 16.9% (14-46) Monocytes (%) (Auto) 6.9% (4-12) Eosinophils (%) (Auto) 0.2% (0-5) Basophils (%) (Auto) 0.2% (0-3) Hold Purple Top Tube Received (Received) Hold Blue Top Tube Received (Received) Sodium Level 139mEq/L (134-144) 138mEq/L (134-144) Potassium Level 4.1mEq/L (3.5-5.2) 4.0mEq/L (3.5-5.2) Chloride Level 103mEq/L (97-108) 102mEq/L (97-108) Carbon Dioxide Level 22mmol/L (18-29) 22mmol/L (18-29) Blood Urea Nitrogen 28mg/dL (8-27) 21mg/dL (8-27) Creatinine 1.07mg/dL (0.76-1.27) 0.90mg/dL (0.76-1.27) Estimat Glomerular Filtration Rate 69mL/min (>59) 85mL/min (>59) Glucose Level 104mg/dL (60-99) 92mg/dL (60-99) Lactic Acid Level 1.1mmol/L (0.4-2.0) Uric Acid 6.4mg/dL (2.6-7.2) Calcium Level 9.0mg/dL (8.5-10.1) 8.4mg/dL (8.5-10.1) Magnesium Level 2.0mg/dL (1.6-2.6) 2.0mg/dL (1.6-2.6) Total Bilirubin 0.7mg/dL (0.0-1.2) Aspartate Amino Transf (AST/SGOT) 14U/L (0-50) Alanine Aminotransferase (ALT/SGPT) 7U/L (0-44) Alkaline Phosphatase 45U/L (25-160) Ammonia 34ug/dL (18-53) Troponin T 0.026ug/L (0.0-0.011) 0.033ug/L (0.0-0.011) 0.036ug/L (0.0-0.011) Total Protein 6.3g/dL (6.4-8.4) Albumin 3.8g/dL (3.4-5.0) Thyroid Stimulating Hormone (TSH) 2.360uIU/mL (0.450-4.500) Hold Red Top Tube Received (Received) Hold [place] Top Tube Received (Received) Alcohols < 10mg/dL (0-10) Urine Color Yellow (YELLOW) Urine Appearance Clear (CLEAR,HAZY) Urine pH 6.5 (5.0-8.0) Urine Specific [place] 1.015 (1.003-1.035) Urine Protein Negativemg/dL (NEG,TRACE) Urine Glucose (UA) Negativemg/dL (NEGATIVE) Urine Ketones Negativemg/dL (NEGATIVE) Urine Occult Blood Negative (NEGATIVE) Urine Nitrite Negative (NEGATIVE) Urine Bilirubin Negative (NEGATIVE) Urine Urobilinogen 1.0mg/dL (NORMAL) Urine Leukocyte Esterase Negative (NEGATIVE) Urine RBC 0-2/hpf (0-2) Urine WBC 0-5/hpf (0-5) Urine Epithelial Cells Occasional/hpf (NONE-MOD) Urine Crystals None seen (NONE SEEN) Urine Bacteria None/hpf (NONE-FEW) Urine Hyaline Casts None/lpf (NONE) Urine Granular Casts None seen (NONE SEEN) Urine Waxy Casts None seen (NONE SEEN) Urine Red Blood Cell Casts None seen (NONE SEEN) Urine White Blood Cell Casts None seen (NONE SEEN) Urine Mucus None seen (None Seen) Urine Trichomonas None seen (NONE SEEN) Urine Yeast None (NONE SEEN) Urinalysis Comment None Urine Culture Reflexed Not indicated Result Diagram: 09/15/16220909/15/162209 Microbiology 09/15/16 Blood Culture- pending X-Rays, CTs and MRIs (09/16/16) X-RAY CHEST ONE VIEW, PORTABLE IMPRESSION: Stable normal chest. Dictated and approved by: Hardeep Marte M.D. on 09/16/2016 at 7:49 (09/16/16) CT BRAIN WITHOUT CONTRAST IMPRESSION: 1. No acute intracranial abnormalities. 2. Cerebral volume loss and chronic microvascular ischemic changes. 3. Left maxillary and ethmoid sinus disease. No significant discrepancy with the security shift supervisor radiology preliminary report. Dictated and approved by: Chris Melendez M.D. on 09/16/2016 at 7:13 . Assessment & Plan 86-year-old gentleman with a history of thromboembolic disease with prior DVT, hypertension, anemia, malnutrition and pancreatic cystic mass of uncertain etiology identified on CT abdomen (02/27/14) who presented with generalized weakness. Admitted for new onset atrial fibrillation. 1. New atrial fibrillation. Present on admission. Active. -Patient denies prior diagnosis. Likely due to longstanding hypertension and age. CHADS2 score 1 (HTN), no anticoagulation indicated. Rule out thyrotoxicosis and underlying ischemic heart disease. -No rapid ventricular response. Currently with bradycardia, HR 50s-low 60s. Holding hold metoprolol -Echocardiogram, pending -Troponin trending up, most recent 0.036. Pt without chest pain. Likely secondary to demand ischemia, will continue to trend. -Continue telemetry -TSH wnl -Continue aspirin 2. Elevated troponin. Present on admission. Active. -Unknown chronicity, 0.026 and trended up with most recent 0.036. ECG with nonspecific ST-T wave changes. -Likely secondary to demand ischemia. Will continue to trend. -Echocardiogram, pending. 3. Generalized weakness, unknown chronicity. Present on admission. Active. -Likely multifactorial secondary to malnutrition, deconditioning and new Atrial fibrillation. No evidence of Urinary tract infection -Physical therapy and transportation worker consult 4 Hypertension, chronic. Present on admission. Presumed stable. -BP 150-17/50-60s. -Continue Amlodipine 5 mg daily 5. Thromboembolic disease. Present on admission. Presumed stable. -Patient was supposedly on Lovenox but currently not on any anticoagulation. -Started on subcutaneous heparin for DVT prophylaxis. 6. Moderate protein calorie malnutrition, chronic. Present on admission. Presumed stable. -Continue home marinol 2.5 mg b.i.d. 7. Deconditioning, chronic. Present on admission. -Physical therapy consulted - Acetaminophen as needed for mild pain/fever/headache - Bowel regimen as needed - Antiemetic as needed Disposition: Patient will likely need 1-2 days of inpatient monitoring to further evaluate new onset atrial fibrillation and generalized weakness. Pain Evaluation: Adequate Pain Control VTE Prophylaxis: Sub-Q Heparin (Unfractionated) VTE Mechanical Devices: Intermittant Pneumatic CD Resuscitation Status: CPR: Attempt Resuscitation Attending Statement The patient was seen and examined together with Resident/House-staff on 09/16/16 and I agree with the history, exam and plan as outlined in the note above. Bobbi Curtis DO September 16, 2016 07:51 Ho Marcano September 18, 2016 17:01
--- NOTE | 2016-09-16 16:08 | NUR ---
Orthos: Laying down: BP 139/64 P 55 Standing up: BP 114/53 P 76 Addendum: 09/16/16 at 1818 by JUNIOR ALEX RN Pt tolerated standing up fairly well. C/O only slight dizziness. Steady on his feet.
--- NOTE | 2016-09-16 18:04 | NUR ---
Case Management: SHIRLENE explained to patient who was dozing intermittently, his son Tl and other family members at 1700, all questions answered. Tl signed GARBER, original placed in chart copy given to Tl. Antonia Saxena RN
[2016-09-16] MEDS ORDERED: 0.9% Sodium Chloride 1,000 ML IV ONE (18:45)
[2016-09-17] VITALS (11 sets, daily range): BP systolic 136–190; BP diastolic 47–67; PULSE 51–72; RESP 16–21; O2SAT 92–98
[2016-09-17] MEDS: Heparin 5,000 Unit/mL Inj SUBQ SCH ×3 (01:21→17:01)
[2016-09-17 02:51] LABS: BASOPHILS % (AUTO) 0.6 % (0-3); EOSINOPHILS % (AUTO) 3.6 % (0-5); MONOCYTES % (AUTO) 15.1 % (4-12); Mean Corpuscular Hemoglobin 30.4 pg (27.0-35.0); Mean Corpuscular Volume 90.5 fL (81-100); NEUTROPHILS % (AUTO) 59.4 % (40-74); Platelet Count 168 bil/L (150-400)
--- NOTE | 2016-09-17 07:50 | NUR ---
PO/Activity/Tele Pt taking very little PO intake overnight, mostly slept, stated he had very little sleep over hospital stay. Pt denied pain throughout night. Drowsy but A&Ox3, pleasant, and voicing needs appropriately. Pt very weak but able to stand to BSC w/ SBA-1 PA. [place] alarm on for safety d/t recent fall. Tele SR 50s-60s w/ PVCs and PACs. Also a 1st AVB and IVCD per floor care technician. Occasionally HR falls to high 40s while pt sleeps but does not sustain long. SBP 150s-160s.
--- NOTE | 2016-09-17 10:21 | NUR ---
Social Work: Initial Assessment D: Per EMR review, pt is an 86 year old male admitted for new onset AFIB. Pt is [facility] with Medicare. Pt has no LTC insurance or VA Benefits. PCP is Adalgisa Herrera MD. NOK is leticia Bolton, dtr, . Advanced directives completed and requested from pt's family. Readmit score is low, 2/8. SENIOR GENETIC COUNSELOR met with pt at bedside. Sw role explained and contact info provided. See initial assessment. Pt lives at [facility]. He uses a walker occasionally. Pt has a history with [facility] for RN, PT but is not currently open for services. Pt has never been to Skilled rehab. Pt does not drive and relies on family. Pt wishes to return to [facility] when ready. t/c to Karen, director of intelligence with [facility]. She states pt is a low level of care and does no require assistance with ambulations or transfers out of bed. Pt only requires queuing for grooming and meals. They are requesting PT notes faxed to [phone] when completed to determine if a bedside assessment is required. PT evaluation is still pending; Pt currently 1PA. A: Pt who lives at [facility] WILLIAM with his . P: Anticipate pt to return to [facility] when medically stable; SENIOR GENETIC COUNSELOR to follow up with PT Evaluation and recs when completed. R/O SNF versus [facility] Addendum: 09/17/16 at 1036 by WILLIE SNYDER Amended: Links added.
--- NOTE | 2016-09-17 11:31 | PCM.PNMED ---
Subjective Date of Service September 17, 2016 Subjective Kuldeep Mccartney is an 86-year-old gentleman with a history of thromboembolic disease with prior DVT, hypertension, anemia, malnutrition and pancreatic cystic mass of uncertain etiology identified on CT abdomen (02/27/14) who presented from [facility] living [facility] due to generalized weakness. Admitted for presumably new onset atrial fibrillation and weakness. No acute events overnight. Per nursing, patient with poor oral intake and 1L of normal saline given at 100mls/hr. Sinus rhythm with rate in 50s-60s with PVCs and PACs noted on telemetry. Additionally 1st degree AVB reported by manager monitoring. Tele SR 50s-60s w/ PVCs and PACs. Also a 1st AVB and IVCD per manager monitoring. Transient drop in HR into 40s while sleeping. Today patient states that the generalized weakness started in the last two weeks. He attributes his symptoms to old age and deconditioning. He denies chest pain, shortness of breath, nausea or vomiting. Exam Vital Signs Vital Sign - Last Date Time Temp Pulse Resp B/P Pulse Ox O2 Delivery O2 Flow Rate FiO2 09/17/16 08:23 154/61 09/17/16 08:12 16 09/17/16 08:05 36.5 51 92 Room Air Intake and Output 09/16/16 09/16/16 09/17/16 Cumulative From/Thru 15:00 23:00 07:00 09/15/16 22:05 - 09/17/16 05:26 Intake Total 200 ml 100 ml 400 ml Output Total 700 ml 575 ml 1425 ml Balance -500 ml -475 ml -1025 ml Intake Oral 200 ml 100 ml 400 ml Output Urine Total 700 ml 575 ml 1425 ml # Voids 1 # Bowel Movements 0 Exam General: Frail, elderly male in no acute distress. Alert, cooperative, in no acute distress HEENT: Normocephalic, contusion of forehead on left just above eyebrow with dried blood, PERRLA. Mucosa moist/pink. Neck: Supple, nontender, no JVD. Cardiovascular: Regular Rate/Rhythm, normal S1/S2, no murmurs, rubs or gallops appreciated Pulmonary: Symmetric chest rise, normal breath sounds, lungs clear to auscultation bilaterally. Extremities: No edema, no cyanosis, no clubbing. Skin: Warm and dry, no erythema, rashes or ulcerations. Neurological: Generalized weakness without focal deficit. Normal Speech. IVs and Medications Medications Reviewed: Medications were reviewed in detail Lab and Diagnostics Laboratory Tests Test 09/16/16 13:50 09/16/16 19:55 09/17/16 02:24 09/17/16 08:30 Troponin T 0.036ug/L (0.0-0.011) 0.026ug/L (0.0-0.011) 0.027ug/L (0.0-0.011) 0.032ug/L (0.0-0.011) White Blood Count 5.4th/mm3 (3.8-10.1) Red Blood Count 4.21mil/mm3 (4.40-5.80) Hemoglobin 12.8g/dL (13.8-17.2) Hematocrit 38.1% (41.0-50.0) Mean Corpuscular Volume 90.5fL (81-100) Mean Corpuscular Hemoglobin 30.4pg (27.0-35.0) Mean Corpuscular Hemoglobin Concent 33.6% (32.0-37.0) Red Cell Distribution Width 13.1% (12.3-15.4) Platelet Count 168bil/L (150-400) Neutrophils (%) (Auto) 59.4% (40-74) Lymphocytes (%) (Auto) 21.1% (14-46) Monocytes (%) (Auto) 15.1% (4-12) Eosinophils (%) (Auto) 3.6% (0-5) Basophils (%) (Auto) 0.6% (0-3) Sodium Level 135mEq/L (134-144) Potassium Level 4.1mEq/L (3.5-5.2) Chloride Level 100mEq/L (97-108) Carbon Dioxide Level 21mmol/L (18-29) Blood Urea Nitrogen 18mg/dL (8-27) Creatinine 0.79mg/dL (0.76-1.27) Estimat Glomerular Filtration Rate 98mL/min (>59) Glucose Level 96mg/dL (60-99) Calcium Level 8.2mg/dL (8.5-10.1) Total Bilirubin 0.9mg/dL (0.0-1.2) Aspartate Amino Transf (AST/SGOT) 17U/L (0-50) Alanine Aminotransferase (ALT/SGPT) 6U/L (0-44) Alkaline Phosphatase 45U/L (25-160) Total Protein 5.4g/dL (6.4-8.4) Albumin 3.4g/dL (3.4-5.0) Result Diagram: 09/17/16 0224 09/17/16 0224 Microbiology 09/15/16 Blood Culture - no growth 24 hours. X-Rays, CTs and MRIs (09/16/16) X-RAY CHEST ONE VIEW, PORTABLE IMPRESSION: Stable normal chest. Dictated and approved by: Hardeep Marte M.D. on 09/16/2016 at 7:49 (09/16/16) CT BRAIN WITHOUT CONTRAST IMPRESSION: 1. No acute intracranial abnormalities. 2. Cerebral volume loss and chronic microvascular ischemic changes. 3. Left maxillary and ethmoid sinus disease. No significant discrepancy with the mine shifter radiology preliminary report. Dictated and approved by: Chris Melendez M.D. on 09/16/2016 at 7:13 . Assessment & Plan 86-year-old gentleman with a history of thromboembolic disease with prior DVT, hypertension, anemia, malnutrition and pancreatic cystic mass of uncertain etiology identified on CT abdomen (02/27/14) who presented with generalized weakness. Admitted for new onset atrial fibrillation. 1. New atrial fibrillation. Present on admission. Active. -Patient denies prior diagnosis. Likely due to longstanding hypertension and age. CHADS2 score 1 (HTN), no anticoagulation indicated. Rule out underlying ischemic heart disease. -No rapid ventricular response. Currently with bradycardia, HR 50s-low 60s. Holding hold metoprolol -Echocardiogram, pending -Troponin stable, most recent 0.032. Pt without chest pain. Likely secondary to demand ischemia. -Continue telemetry -TSH wnl -Continue aspirin 2. Elevated troponin. Present on admission. Improved -Unknown chronicity, 0.026 and trended up initially. Stable at 0.032. ECG with nonspecific ST-T wave changes. -Likely secondary to demand ischemia. -Echocardiogram, pending. 3. Generalized weakness, unknown chronicity. Present on admission. Active. -Likely multifactorial secondary to malnutrition, deconditioning and possibly new Atrial fibrillation. No evidence of Urinary tract infection -Physical therapy evaluation -Social work following 4 Hypertension, chronic. Present on admission. Presumed stable. -BP 150-17/50-60s. -Continue Amlodipine 5 mg daily -Start home lisinopril at reduced dose 10mg daily. 5. Thromboembolic disease. Present on admission. Presumed stable. -Patient was supposedly on Lovenox but currently not on any anticoagulation. -Continue subcutaneous heparin for DVT prophylaxis. 6. Moderate protein calorie malnutrition, chronic. Present on admission. Presumed stable. -Patient previously taking marinol 2.5mg bid. This has not been started and is not active on his updated med list. -Will need to confirm whether he is taking this and continue if appropriate. 7. Deconditioning, chronic. Present on admission. -Physical therapy consulted - Acetaminophen as needed for mild pain/fever/headache - Bowel regimen as needed - Antiemetic as needed Disposition: Patient will likely need 1-2 days of inpatient monitoring to further evaluate new onset atrial fibrillation and generalized weakness. Pain Evaluation: Adequate Pain Control VTE Prophylaxis: Sub-Q Heparin (Unfractionated) VTE Mechanical Devices: Intermittant Pneumatic CD Resuscitation Status: CPR: Attempt Resuscitation Attending Statement The patient was seen and examined together with Resident/House-staff on 09/17/16 and I agree with the history, exam and plan as outlined in the note above. Bobbi Curtis DO September 17, 2016 11:18 Ho Marcano October 01, 2016 17:18
--- NOTE | 2016-09-17 12:31 | NUR ---
HEART RATE/Failure to thrive P-Patient heart fate Sinus Rohan 50-60, irregular with PAC, PVC and 1degree block per vehicle monitor technician. Patient up with PT today. I- Patient appears weak and states "I just don't have any energy". Patient able to walk 100ft with FWW, (see PT note). Some teaching done on medications, who helps patient at home is currently also in hospital. E-Patient does not appear to be able to take care of himself at this time, Social Work aware.
--- NOTE | 2016-09-17 15:02 | NUR ---
Gave access and faxed facesheet to [facility] and requested private pay prices Updated PROJECT CONTROL ANALYST Addendum: 09/17/16 at 1552 by DEVIN DOWD CM [facility] is willing to accept patient with Insurance authorization or Private pay with to follow. Johana is faxing private pay sheet to main office for patient's children. Updated PROJECT CONTROL ANALYST
--- NOTE | 2016-09-17 16:20 | NUR ---
Case Management: Explained IMM to patient at 1554, all questions answered. Signed original placed in chart, copy given to patient. Antonia Saxena RN
--- NOTE | 2016-09-17 17:06 | DRSVH ---
[facility] [address] [place] [address] Echocardiogram Report Name: LYNETTE VAUGHN NStudy Payam e: 09/17/2016 Height: 72 in Hospital Exam Location: [facility] Weight: 186 lb Gender: Male BSA: 2.1 m2 : 1930 Age: 86 yrs BP: 136/67 mmHg Reason For Study: SOB Ordering Physician: Performed By: Tiara Viera Referring Physician: Adalgisa Herrera Interpretation Summary There is mild concentric left ventricular hypertrophy. The left ventricle is normal in size. Left ventricular ejection fraction is estimated to be 50 +/- 5%. Septal motion is consistent with conduction abnormality. Mild distal anteroseptal hypokinesis is noted, this was not reported on prior exam Both atria are severely dilated. There is moderate to severe aortic regurgitation. Right ventricular systolic pressure is estimated to be 20 mmHg plus the clinically estimated CVP which cannot be estimated on this exam. Procedure: A two-dimensional transthoracic echocardiogram with color flow and Doppler was performed. The study quality was technically adequate. Comparison is made with the echocardiogram of 01-07-2016. Left Ventricle: The left ventricle is normal in size. There is mild concentric left ventricular hypertrophy. Left ventricular ejection fraction is estimated to be 50 +/- 5%. Septal motion is consistent with conduction abnormality. Mild distal anteroseptal hypokinesis is noted, this was not reported on prior exam. Right Ventricle: The right ventricle is normal in size and function. Atria: Both atria are severely dilated. There is no Doppler evidence for an atrial septal defect. Mitral Valve: The mitral valve leaflets appear normal. There is no evidence of stenosis, fluttering, or prolapse. There is trace mitral regurgitation. Aortic Valve: The aortic valve is trileaflet. The aortic valve opens well. There is moderate to severe aortic regurgitation. Tricuspid Valve: The tricuspid valve leaflets are thin and pliable. There is a trace or physiologic amount of tricuspid regurgitation. Right ventricular systolic pressure is estimated to be 20 mmHg plus the clinically estimated CVP which cannot be estimated on this exam. Pulmonic Valve: The pulmonic valve leaflets are thin and pliable; valve motion is normal. There is a trace or physiologic amount of pulmonic regurgitation. Great Vessels: The aortic root is moderately dilated. The ascending aorta is mildly enlarged. The pulmonary artery is normal size. Unable to evaluate for inspirational collapse. The inferior vena cava was not well visualized. The IVC has a measurement of 21 mm. Pericardium/ Pleura There is no pericardial effusion. There is no pleural effusion. MMode/2D Measurements & Calculations LVIDd: 4.4 cm LA dimension: 4.8 cm RA long axis LVOT diam: 2.1 cm LVIDs: 3.1 cm AoV Opening FS: 29.6 % LA A2 area: 35.1 cm RA area EPSS: 3.0 cm LA A4 area: 32.5 cm Ao root diam IVSd: 1.3 cm LA length (vol) : 29.5 cm LVPWd: 1.2 cm RA vol Aortic Jxn: 3.7 cm LA vol: 139.6 ml : 110.ml asc Aorta Diam LA vol index RA : 53.5 mm2 Ao Arch Diam (Prox Trans): 3.3 cm IVC diam: 2.1 cm LV rodriguez. diameter/BSA LV sys. diameter/BSA RVD2 (mid) (cm/m^2): 2.1 (cm/m^2): 1.5 : 3.1 cm Doppler Measurements & Calculations Ao V2 max MV E max pasquale TR max pasquale Ao V2 mean : 156.4 cm/sec : 94.2 cm/sec : 221.2 cm/sec : 117.0 cm/sec Ao max P.8 mmHg TR max P.7 mmHg Ao V2 VTI Ao mean PG PA V2 max : 168.1 cm/sec LVOT Max Pasquale PA mean P.5 mmHg CHACORTA(V,D): 2.9 cm2 : 130.5 cm/sec PA Accel Time CHACORTA(I,D): 3.0 cm sev ratio: 0.85 AI P1/2t : 447.8 msec AI dec slope : 255.5 cm/s2c LV V1 max PG PA V2 mean CHACORTA indexed to BSA : 109.5 cm/sec (cm^2/m^2): 1.4 LV V1 VTI: 25.7 cm Electronically signed by: Gerry Crawford on Reading Physician:09/17/2016 05:05 PM
[2016-09-17] MEDS ORDERED: hydrALAZINE 20 mg/mL Inj IV PRN (21:30)
[2016-09-18] VITALS (14 sets, daily range): BP systolic 103–182; BP diastolic 56–83; PULSE 53–98; RESP 18–20; O2SAT 95–98
[2016-09-18] MEDS: Heparin 5,000 Unit/mL Inj SUBQ SCH ×3 (00:16→16:54)
--- NOTE | 2016-09-18 02:10 | NUR ---
hypertension pt BP 190s/60s HR in the 50, called MD received order for prn hydralazine. gave 10mg IV hydralazine around 2150 BP hour later 186/66. at 0200 pts BP 139/66 and hr in the 60-70s. pt is asymptomatic with this. pt very sleepy
[2016-09-18 04:31] LABS: BASOPHILS % (AUTO) 0.6 % (0-3); EOSINOPHILS % (AUTO) 3.9 % (0-5); MONOCYTES % (AUTO) 16.2 % (4-12); Mean Corpuscular Hemoglobin 30.4 pg (27.0-35.0); Mean Corpuscular Volume 89.1 fL (81-100); NEUTROPHILS % (AUTO) 62.3 % (40-74); Platelet Count 187 bil/L (150-400)
--- NOTE | 2016-09-18 07:52 | PCM.PNMED ---
Subjective Date of Service September 18, 2016 Subjective Kuldeep Mccartney is an 86-year-old gentleman with a history of thromboembolic disease with prior DVT, hypertension, anemia, malnutrition and pancreatic cystic mass of uncertain etiology identified on CT abdomen (02/27/14) who presented from [facility] living [facility] due to generalized weakness. Admitted for presumably new onset atrial fibrillation and weakness. Patient was hypertensive overnight with blood pressure 190s/60 and heart rate in the 50s. He was given 10mg of IV hydralazine with good response and BP down to 139/66, rate 60-70s. Physical therapy evaluated the patient and recommend home with home health and physical therapy. This morning, the patient states that he is feeling better but still feels weak. He denies chest pain, palpitations, dizziness, nausea, vomiting or diarrhea. Exam Vital Signs Vital Sign - Last Date Time Temp Pulse Resp B/P Pulse Ox O2 Delivery O2 Flow Rate FiO2 09/18/16 05:00 156/64 09/18/16 04:00 36.7 65 20 98 Room Air Intake and Output 09/17/16 09/17/16 09/18/16 Cumulative From/Thru 15:00 23:00 07:00 09/15/16 22:05 - 09/18/16 06:02 Intake Total 1000 ml 440 ml 200 ml 2040 ml Output Total 500 ml 1000 ml 2925 ml Balance 1000 ml -60 ml -800 ml -885 ml Intake Oral 400 ml 200 ml 1000 ml IV Total 1000 ml 40 ml 1040 ml Output Urine Total 500 ml 1000 ml 2925 ml # Voids 1 2 # Bowel Movements 1 1 Exam General: Frail, elderly male in no acute distress. Alert and appropriately interactive. HEENT: Normocephalic, contusion of forehead on left just above eyebrow with dried blood, PERRLA. Mucosa moist/pink. Neck: Supple, nontender, no JVD. Cardiovascular: Regular rate, irregular rhythm, normal S1/S2, no murmurs, rubs or gallops appreciated Pulmonary: Symmetric chest rise, normal breath sounds, lungs clear to auscultation bilaterally. Extremities: No edema, no cyanosis, no clubbing. Skin: Warm and dry, no erythema, rashes or ulcerations. Neurological: Generalized weakness without focal deficit. Normal Speech. IVs and Medications Medications Reviewed: Medications were reviewed in detail Lab and Diagnostics Laboratory Tests Test 09/17/16 08:30 09/18/16 04:05 Troponin T 0.032ug/L (0.0-0.011) White Blood Count 4.8th/mm3 (3.8-10.1) Red Blood Count 4.50mil/mm3 (4.40-5.80) Hemoglobin 13.7g/dL (13.8-17.2) Hematocrit 40.1% (41.0-50.0) Mean Corpuscular Volume 89.1fL (81-100) Mean Corpuscular Hemoglobin 30.4pg (27.0-35.0) Mean Corpuscular Hemoglobin Concent 34.2% (32.0-37.0) Red Cell Distribution Width 13.3% (12.3-15.4) Platelet Count 187bil/L (150-400) Neutrophils (%) (Auto) 62.3% (40-74) Lymphocytes (%) (Auto) 17.0% (14-46) Monocytes (%) (Auto) 16.2% (4-12) Eosinophils (%) (Auto) 3.9% (0-5) Basophils (%) (Auto) 0.6% (0-3) Sodium Level 135mEq/L (134-144) Potassium Level 3.7mEq/L (3.5-5.2) Chloride Level 99mEq/L (97-108) Carbon Dioxide Level 19mmol/L (18-29) Blood Urea Nitrogen 19mg/dL (8-27) Creatinine 0.74mg/dL (0.76-1.27) Estimat Glomerular Filtration Rate 106mL/min (>59) Glucose Level 102mg/dL (60-99) Calcium Level 8.6mg/dL (8.5-10.1) Result Diagram: 09/18/16 0405 09/18/16 0405 Microbiology 09/15/16 Blood Culture - No growth at 2 days X-Rays, CTs and MRIs (09/16/16) X-RAY CHEST ONE VIEW, PORTABLE IMPRESSION: Stable normal chest. Dictated and approved by: Hardeep Marte M.D. on 09/16/2016 at 7:49 (09/16/16) CT BRAIN WITHOUT CONTRAST IMPRESSION: 1. No acute intracranial abnormalities. 2. Cerebral volume loss and chronic microvascular ischemic changes. 3. Left maxillary and ethmoid sinus disease. No significant discrepancy with the associate brand manager radiology preliminary report. Dictated and approved by: Chris Melendez M.D. on 09/16/2016 at 7:13 . Cardiac Echo Impressions (09/17/16) ECHOCARDIOGRAM Interpretation Summary There is mild concentric left ventricular hypertrophy. The left ventricle is normal in size. Left ventricular ejection fraction is estimated to be 50 +/- 5%. Septal motion is consistent with conduction abnormality. Mild distal anteroseptal hypokinesis is noted, this was not reported on prior exam Both atria are severely dilated. There is moderate to severe aortic regurgitation. Right ventricular systolic pressure is estimated to be 20 mmHg plus the clinically estimated CVP which cannot be estimated on this exam. Reading Physician: Gerry Crawford on 09/17/2016 05:05 PM Assessment & Plan 86-year-old gentleman with a history of thromboembolic disease with prior DVT, hypertension, anemia, malnutrition and pancreatic cystic mass of uncertain etiology identified on CT abdomen (02/27/14) who presented with generalized weakness. Admitted for new onset atrial fibrillation. 1. Paroxysmal atrial fibrillation, new onset. Present on admission. Active. -Patient denies prior diagnosis. Likely due to longstanding hypertension and age. CHADS2 score 1 (HTN), no anticoagulation indicated. Rule out underlying ischemic heart disease. -No rapid ventricular response. Intermittently bradycardic. Holding hold metoprolol -Echocardiogram, (09/17/16) EF 50 +/- 5% -Troponin stable, but trending up. Most recent 0.032. Patient asymptomatic. -Continue telemetry, aspirin -Cardiac stress test planned for 09/19/16. 2. Possible NSTEMI, acute. Present on admission. Active -Troponin elevated. Unknown chronicity, 0.026 and trended up initially. Appears stable at 0.032. However, Echocardiogram showed wall motion abnormalities new from prior study and ECG with nonspecific ST-T wave changes. -Trend troponin -Stress test, as above. 3. Generalized weakness, unknown chronicity. Present on admission. Active. -Likely multifactorial secondary to malnutrition, deconditioning and possibly new Atrial fibrillation. -Physical therapy recommend PT recommending D/C back to [facility] with possible increased caregiver support and HHPT. -Social work following, patient's is also here in the hospital on the third floor. Per social work patient's will be discharging to [place], [place]. 4 Hypertension, chronic. Present on admission. Presumed stable. -BP 150-17/50-60s. -Continue Amlodipine 5 mg daily and lisinopril at reduced dose 10mg daily. 5. Thromboembolic disease. Present on admission. Presumed stable. -Patient was supposedly on Lovenox but currently not on any anticoagulation. -Continue subcutaneous heparin for DVT prophylaxis. 6. Moderate protein calorie malnutrition, chronic. Present on admission. Presumed stable. -Patient previously taking marinol 2.5mg bid. This has not been started and is not active on his updated med list. -Will need to confirm whether he is taking this and continue if appropriate. 7. Deconditioning, chronic. Present on admission. -Physical therapy recommend home with home health and outpatient physical therapy. - Acetaminophen as needed for mild pain/fever/headache - Bowel regimen as needed - Antiemetic as needed Disposition: Patient will likely need 1-2 days of inpatient monitoring to further evaluate new onset atrial fibrillation, generalized weakness and cardiac stress test. VTE Prophylaxis: Sub-Q Heparin (Unfractionated) VTE Mechanical Devices: Intermittant Pneumatic CD Resuscitation Status: CPR: Attempt Resuscitation Attending Statement The patient was seen and examined together with Resident/House-staff on 09/18/16 and I agree with the history, exam and plan as outlined in the note above. Bobbi Curtis DO September 18, 2016 07:50 Ho Marcano October 01, 2016 17:35
--- NOTE | 2016-09-18 11:22 | NUR ---
Social Work: Continued Discharge Planning D: Pt's is currently admitted on [facility]. Per [facility] and [facility] social media marketing analyst conversations with the pt's family, they were requesting to have both the pt and his placed a [facility]. Pt was able to ambulate 125 feet SBA and would not qualify for SNF. They were willing to pay privately. HVAC REFRIGERATION TECHNICIAN obtained PP rates for the pt's family. HVAC REFRIGERATION TECHNICIAN spoke with pt's daughter, Anali Bolton, who states that the family and the pt's have changed their minds and wish for the pt to return to [facility] instead of going to skilled rehab. She states that the pt was at [facility] in the past and a long term setting was not ideal for the pt. HVAC REFRIGERATION TECHNICIAN reviewed pt's PT evaluation and discussed home health and recommendations for a higher level of assistance when returning to [facility]. Pt's daughter would like for the pt to complete physical therapy at [facility] instead of doing home health as the pt was inconsistent with his HH workers in the past and did not benefit as much as doing outpatient. HVAC REFRIGERATION TECHNICIAN agreed. Pt discussed in am rounds. Pt anticipated to be ready for d/c today. Telephone call placed to [facility] to discuss patient's return; left message requesting return phone call. A: Pt who is ambulating 125 with a FWW SBA. P: Anticipate pt to return to [facility] and to complete PT/OT at [facility] REHANA Estrada Addendum: 09/18/16 at 1634 by WILLIE BUENO REHANA spoke with loft worker at [facility] ([phone]). She is requesting clinicals faxed to [phone]. She will review and determine if she needs to complete a bedside assessment. HVAC REFRIGERATION TECHNICIAN informed her that pt is awaiting a stress test and depending on results may be ready for discharge after.
--- NOTE | 2016-09-18 12:18 | NUR ---
Ambulate w/nsg Pt is released to ambulate w/nsg at this time w/FWW SBA 2-3x/day as pt tolerates. PT will cont to see 2x/week to progress AD.
--- NOTE | 2016-09-18 15:16 | NUR ---
Faxed clinicals to [place] per MARINE FIRER
--- NOTE | 2016-09-18 19:00 | NUR ---
Computer were down, late entry Pt ambulated with RN X2, with FWW. He had made it half loop of the floor. He did need encouragement to get up and ambulate and did need encouragement to keep going when on walk. Pt get OOB one time on his own today. Needed reminder to use call light
--- NOTE | 2016-09-18 22:44 | NUR ---
Ambulation Pt not waiting to wait for assistance and gets up without SBA. Pt's gait steady but bed alarm reactivated and pt educated surrounding the importance of waiting for assistance for safety.
[2016-09-19] VITALS (11 sets, daily range): BP systolic 98–173; BP diastolic 37–75; PULSE 51–97; RESP 18–22; O2SAT 95–97
[2016-09-19] MEDS: Heparin 5,000 Unit/mL Inj SUBQ SCH ×4 (03:20→23:59)
[2016-09-19 04:58] LABS: BASOPHILS % (AUTO) 0.5 % (0-3); EOSINOPHILS % (AUTO) 5.7 % (0-5); MONOCYTES % (AUTO) 20.3 % (4-12); Mean Corpuscular Volume 89.4 fL (81-100); NEUTROPHILS % (AUTO) 48.2 % (40-74); Platelet Count 174 bil/L (150-400)
[2016-09-19] MEDS ORDERED: Potassium Chloride 20 mEq SR Tablet PO ONE (10:20)
--- NOTE | 2016-09-19 10:31 | NUR ---
NUTRITION ASSESSMENT: ASSESS:86 YO male admitted with new onset A-fib. Etiology is likely longstanding hypertension and age. Apparently the patient lives at [place] and is extremely deconditioned. There is mention of moderate protein calorie malnutrition, which is difficult to clarify. There has been a gradual trend of weight loss over the past years, with a high of 100.7 on 03/13/14 = 18.17% x 2.5 years. Nutrition-focused physical exam does reveal some subcutaneous fat and muscle loss. He does have a history of dysphagia and is currently tolerating 50% of his regular heart healthy trays. Possible NSTEMI present on admission. Troponin elevated; unknown chronicity. Echocardiogram showed wall motion abnormalities new from prior study and ECG with nonspecific ST-T wave changes. Code status: full. PMHx:Moderate protein calorie malnutrition, thromboembolic disease with hx DVT, HTN, anemia, pancreatic mass, traumatic left shoulder rotator cuff tear with multiple left shoulder tendon tears while on anticoagulant therapy, syncope due to acute volume loss, acute kidney injury, Reading's syndrome. DIET:Heart healthy. PO intake 50% trays. LABS: Reviewed. Ca 8.4, Alb 3.4. MEDICATIONS: Reviewed. NUTRITION FOCUSED PHYSICAL ASSESSMENT: GI symptoms / stool: BM x 1 (09/18).Joe: 21. Skin Integrity: Other than noticeable fat and muscle loss, skin integrity appears adequate. ANTHROPOMETRICS: Current Wt: 82.4 kgBMI: 24.0 kg/m2.Admit weight: 90.91 kg IBW: 80.9 kg (112% IBW) ESTIMATED NEEDS BASED ON ADMIT WEIGHT: Calories: 2000 - 2273 kcal (25 - 30 kcal / kg BW) Protein: 91 - 109 g protein (1.0 - 1.2 g / kg BW) Fluid: Approx 2273 mL (25 mL / kg BW) NUTRITION DIAGNOSIS: 1)Potential chewing / swallowing difficulties, etiology unknown, as evidenced by requirement for modified diet texture during past admissions. 2) Possible moderate malnutrition related to severe deconditioning, as evidenced by slow but steady weight loss past admissions. INTERVENTION: 1) Recommend swallow evaluation to determine safety of swallow. 2) Will add supplements to trays. MONITOR/EVALUATE: Diet tolerance, PO intake, labs, GI/nutrition status. Follow up per moderate nutrition risk guidelines.
--- NOTE | 2016-09-19 11:43 | NUR ---
Telemetry Clarification: Sinus, Wenkebach Patient has been Sinus Rhythm since arriving to the floor on 09/16/16. This AM patient has been Sinus Rhythm in the 50-60s with persistent 2AVBI Wenkebach. KALLI Mendoza aware.
--- NOTE | 2016-09-19 14:27 | PCM.PNMED ---
Subjective Date of Service September 19, 2016 Subjective Kuldeep Mccartney is an 86-year-old gentleman with a history of thromboembolic disease with prior DVT, hypertension, anemia, malnutrition and pancreatic cystic mass of uncertain etiology identified on CT abdomen (02/27/14) who presented from [facility] due to generalized weakness. Admitted for presumably new onset atrial fibrillation and weakness. Patient was scheduled for stress test today (09/19). This has been canceled per Cardiology as patient after type 2, AV block noted on telemetry. Per nursing, patient getting up out of bed and not waiting for assistance. He has a steady gait but patient was reminded to wait for assistance. He ambulated with nursing twice yesterday with a four-wheeled walker. This morning, the patient states that he is feeling better but still feels weak. He denies chest pain, palpitations, dizziness, nausea, vomiting or diarrhea. Exam Vital Signs Vital Sign - Last Date Time Temp Pulse Resp B/P Pulse Ox O2 Delivery O2 Flow Rate FiO2 09/19/16 08:14 36.7 64 18 140/60 97 Room Air Intake and Output 09/18/16 09/18/16 09/19/16 Cumulative From/Thru 15:00 23:00 07:00 09/15/16 22:05 - 09/19/16 05:50 Intake Total 400 ml 150 ml 2590 ml Output Total 350 ml 550 ml 3825 ml Balance 50 ml -400 ml -1235 ml Intake Oral 400 ml 150 ml 1550 ml IV Total 1040 ml Output Urine Total 350 ml 550 ml 3825 ml # Voids 5 7 # Bowel Movements 1 0 2 Exam General: Frail, elderly male in no acute distress. Alert and appropriately interactive. HEENT: Normocephalic, contusion of forehead on left just above eyebrow, PERRLA. Mucosa moist/pink. Neck: Supple, nontender, no JVD. Cardiovascular: Regular rate, irregular rhythm, normal S1/S2, no murmurs, rubs or gallops appreciated Pulmonary: Symmetric chest rise, normal breath sounds, lungs clear to auscultation bilaterally. Extremities: No edema, no cyanosis, no clubbing. Skin: Warm and dry, no erythema, rashes or ulcerations. Neurological: Generalized weakness without focal deficit. Normal Speech. IVs and Medications Medications Reviewed: Medications were reviewed in detail Lab and Diagnostics Laboratory Tests Test 09/19/16 04:35 White Blood Count 4.4th/mm3 (3.8-10.1) Red Blood Count 4.33mil/mm3 (4.40-5.80) Hemoglobin 13.0g/dL (13.8-17.2) Hematocrit 38.7% (41.0-50.0) Mean Corpuscular Volume 89.4fL (81-100) Mean Corpuscular Hemoglobin 30.0pg (27.0-35.0) Mean Corpuscular Hemoglobin Concent 33.6% (32.0-37.0) Red Cell Distribution Width 13.3% (12.3-15.4) Platelet Count 174bil/L (150-400) Neutrophils (%) (Auto) 48.2% (40-74) Lymphocytes (%) (Auto) 25.3% (14-46) Monocytes (%) (Auto) 20.3% (4-12) Eosinophils (%) (Auto) 5.7% (0-5) Basophils (%) (Auto) 0.5% (0-3) Sodium Level 135mEq/L (134-144) Potassium Level 3.5mEq/L (3.5-5.2) Chloride Level 99mEq/L (97-108) Carbon Dioxide Level 20mmol/L (18-29) Blood Urea Nitrogen 21mg/dL (8-27) Creatinine 0.84mg/dL (0.76-1.27) Estimat Glomerular Filtration Rate 92mL/min (>59) Glucose Level 99mg/dL (60-99) Calcium Level 8.4mg/dL (8.5-10.1) Total Bilirubin 1.0mg/dL (0.0-1.2) Aspartate Amino Transf (AST/SGOT) 15U/L (0-50) Alanine Aminotransferase (ALT/SGPT) 8U/L (0-44) Alkaline Phosphatase 49U/L (25-160) Total Protein 5.5g/dL (6.4-8.4) Albumin 3.4g/dL (3.4-5.0) Microbiology 09/15/16 Blood Culture - No growth at 2 days Result Diagram: 09/19/16 0435 09/19/16 0435 Microbiology 09/15/16 Blood Culture - No growth at 2 days X-Rays, CTs and MRIs (09/16/16) X-RAY CHEST ONE VIEW, PORTABLE IMPRESSION: Stable normal chest. Dictated and approved by: Hardeep Marte M.D. on 09/16/2016 at 7:49 (09/16/16) CT BRAIN WITHOUT CONTRAST IMPRESSION: 1. No acute intracranial abnormalities. 2. Cerebral volume loss and chronic microvascular ischemic changes. 3. Left maxillary and ethmoid sinus disease. No significant discrepancy with the ferry terminal agent radiology preliminary report. Dictated and approved by: Chris Melendez M.D. on 09/16/2016 at 7:13 . Cardiac Echo Impressions (09/17/16) ECHOCARDIOGRAM Interpretation Summary There is mild concentric left ventricular hypertrophy. The left ventricle is normal in size. Left ventricular ejection fraction is estimated to be 50 +/- 5%. Septal motion is consistent with conduction abnormality. Mild distal anteroseptal hypokinesis is noted, this was not reported on prior exam Both atria are severely dilated. There is moderate to severe aortic regurgitation. Right ventricular systolic pressure is estimated to be 20 mmHg plus the clinically estimated CVP which cannot be estimated on this exam. 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 Admitted for new onset atrial fibrillation. 1. Second degree AV block, not present on admission. Active. -Uncertain chronicity. Patient presented in Afib without rapid ventricular response and intermittently bradycardic. Home metoprolol has been held since admission. Patient reports generalized weakness independent of heart rate. -Hospital night #2, patient with SBP in 190s with rate in the 60s and received 10mg IV hydralazine. BP consistently 130-150/60-70s since that time on amlodipine only. -Ambulate patient, monitor on tele. -Discussed patient with Cardiology, may consider pacemaker if patient symptomatic with bradycardia or heart rate does not increase adequately with activity. 2. Paroxysmal atrial fibrillation, new onset. Present on admission. Active. -Patient denies prior diagnosis. Likely due to longstanding hypertension and age. CHADS2 score 1 (HTN), no anticoagulation indicated. Rule out underlying ischemic heart disease. -Patient has been sinus rhythm since arriving to the floor on 09/16/16. Intermittently bradycardic. Holding home metoprolol -Echocardiogram, (09/17/16) EF 50 +/- 5% -Troponin stable, but trended up. Most recent 0.032. Patient asymptomatic. -Cardiac stress test planned for 09/19/16. Canceled due to second degree AV block noted on telemetry. -Continue telemetry, aspirin 3. Generalized weakness, unknown chronicity. Present on admission. Active. -Likely multifactorial secondary to malnutrition, deconditioning and possibly new Atrial fibrillation and/or AV block. -Physical therapy recommend PT recommending D/C back to [facility] with possible increased caregiver support and HHPT. -Social work following, patient's is also here in the hospital on the third floor. She will be discharging to [place], [place]. 4. Possible NSTEMI, acute. Present on admission. Active -Troponin elevated. Unknown chronicity, 0.026 and trended up initially. Appears stable at 0.032. However, Echocardiogram showed wall motion abnormalities new from prior study and ECG with nonspecific ST-T wave changes. -Trend troponin -Stress test canceled, as above 5. Hypertension, chronic. Present on admission. Presumed stable. -BP 150-17/50-60s. -Continue Amlodipine 5 mg daily -Holding lisinopril, metoprolol 6. Thromboembolic disease. Present on admission. Presumed stable. -Patient was supposedly on Lovenox but currently not on any anticoagulation. -Continue subcutaneous heparin for DVT prophylaxis. 7. Moderate protein calorie malnutrition, chronic. Present on admission. Presumed stable. -Patient previously taking marinol 2.5mg bid. This has not been started and patient states he has not been taking. 8. Deconditioning, chronic. Present on admission. Presumed stable. -Physical therapy recommend home with home health and outpatient physical therapy. -Continue physical therapy - Acetaminophen as needed for mild pain/fever/headache - Bowel regimen as needed - Antiemetic as needed Disposition: Patient will likely need 1-2 days of inpatient monitoring to further evaluate new onset atrial fibrillation, generalized weakness and evaluation of heart block. Pain Evaluation: Adequate Pain Control VTE Prophylaxis: Sub-Q Heparin (Unfractionated) VTE Mechanical Devices: Intermittant Pneumatic CD Resuscitation Status: CPR: Attempt Resuscitation Attending Statement The patient was seen and examined together with Dr. Curtis on 09/19/2016 and I agree with the history, exam and plan as outlined in the note above. . Bobbi Curtis DO September 19, 2016 10:18 Willie Elena MD September 20, 2016 16:55
--- NOTE | 2016-09-19 16:12 | NUR ---
Social Work: continued discharge Planning Data and Assessment: Rachel from [facility] completed a bedside assessment on the patient and [facility] provided Rachel with patient's clinical. Rachel stated that the patient is able to return to [facility]. Patient does not have any other needs at this time. SW will continue to follow. Plan: Patient will discharge to [facility] when medically stable. SW will continue to follow and louisa patient throughout stay. Anna Vicente LMSW, ACM
--- NOTE | 2016-09-19 18:38 | NUR ---
Orthostatic BP/Activity Cardiac: Pt denies CP, Tele: second degree type II block 50-60 at rest. Up to 90s with activity. Orthostatic BPs show orthostatic hypotension, discussed with [facility]. Pt up ambulating in [place] with staff, denies dizziness or SOB, reports he "just feels tired". Resp: Pt denies SOB, SPO2 mid to upper 90s on RA. GI/: Pt denies N/V/D. Neuro: A&Ox3 SMITH, can be forgetful at times.
--- NOTE | 2016-09-19 21:12 | NUR ---
Self-care Pt states he feels weaker today. Pt unable to answer time of day of date. Denies any pain. Full assessment documented. Pt given full bed bath, teeth brushed, full assist. Pt has not been OOB this shift. Fluids encouraged as pt's urine is dark jimenez.
[2016-09-20 00:44] VITALS: PULSE 73
[2016-09-20 03:27] VITALS: BP 129/64; PULSE 56; RESP 20; O2SAT 95
[2016-09-20 04:03] LABS: BASOPHILS % (AUTO) 0.9 % (0-3); EOSINOPHILS % (AUTO) 6.7 % (0-5); MONOCYTES % (AUTO) 16.2 % (4-12); Mean Corpuscular Hemoglobin 30.4 pg (27.0-35.0); Mean Corpuscular Volume 90.2 fL (81-100); NEUTROPHILS % (AUTO) 45.6 % (40-74); Platelet Count 182 bil/L (150-400)
[2016-09-20 04:30] LABS: Magnesium 2.2 mg/dL (1.6-2.6)
[2016-09-20 07:49] VITALS: BP 140/62; PULSE 68; RESP 16; O2SAT 95
[2016-09-20] MEDS: Heparin 5,000 Unit/mL Inj SUBQ SCH (09:19)
[2016-09-20 09:55] VITALS: PULSE 67
--- NOTE | 2016-09-20 10:13 | NUR ---
[facility] signed
[2016-09-20 12:26] VITALS: BP 146/63; PULSE 55; RESP 15; O2SAT 96
--- NOTE | 2016-09-20 12:49 | PCM.DIMED ---
Kyle Evans DO 09/20/16 1249: Discharge Instructions Date of Service September 20, 2016 Dates of Hospitalization September 16, 2016 at 02:09 Discharge Diagnosis Discharge Diagnosis We discovered that there is abnormal electrical conduction in your heart. This is called heart block, but is not worrisome at this time. We also discovered that you have some "afib" which is only occurring occasionally, and does not require any new medication. The weakness you were experiencing is likely related to the afib with some underlying concern for what is called deconditioning, so would recommend some increased activity (walking, etc) as tolerated. Medication Instructions No medication changes at this time. Please continue all your home medications as before. Diet Heart Healthy Activity No restrictions (Use the walker.) Call your provider Fever or Chills, Shortness of breath, Bleeding, Chest pain, Vomitting, Excessive diarrhea, Weakness (unilateral), Other (If you experience any new or concerning symptoms, please call your doctor, or return to the hospital.) Patient Instructions Follow-up plan Please follow up with Dr. Herrera, your primary doctor, within 1 week to discuss your hospitalization. * I will send a summary of your hospital course, and recommendations to Dr. Hrerera prior to your follow up visit. Willie Elena MD 09/20/16 3556: Discharge Instructions Attending's Statement The patient was seen and examined together with Dr. Alvarenga on 09/20/2016 and I agree with the history, exam and plan as outlined in the note above. . Kyle Evans DO September 20, 2016 12:49 Willie Elena MD September 20, 2016 16:56
[2016-09-20 16:10] VITALS: BP 143/66; PULSE 51; RESP 16; O2SAT 97
--- NOTE | 2016-09-20 16:48 | NUR ---
Discharge Pt discharged today at 16:45. Pt off floor via wheelchair, with all of his belongings, in the company of his family and the [employer] to a private vehicle. Pt was given discharge instructions including making a follow up appointment and decreasing lisinopril dose from 20mg to 10mg by cutting his pills in half. extra time was spent explaining afib and it's affects. Pt and family voice understanding.
--- NOTE | 2016-09-21 14:43 | PCM.DC.MED ---
Discharge Summary Date of Service September 21, 2016 Dates of Hospitalization Date of Hospital Admission September 16, 2016 at 02:09 Date of Discharge: September 20, 2016 Providers: Admitting Physician: Yuriy Curiel MD Primary Care Physician: Adalgisa Herrera MD Attending Physician: Yuriy Curiel MD Diagnosis at Time of Discharge Diagnosis at Time of Discharge 1. Second degree AV block, Wenckebach. 2. Paroxysmal atrial fibrillation, new onset. 3. Generalized weakness, unknown chronicity. 4. Elevated troponin, acute. Last check downtrending 5. Hypertension, chronic. 6. Thromboembolic disease, chronic 7. Moderate protein calorie malnutrition, chronic. 8. Deconditioning, chronic. Procedures XRay, CTs & MRIs (09/16/16) X-RAY CHEST ONE VIEW, PORTABLE IMPRESSION: Stable normal chest. Dictated and approved by: Hardeep Marte M.D. on 09/16/2016 at 7:49 (09/16/16) CT BRAIN WITHOUT CONTRAST IMPRESSION: 1. No acute intracranial abnormalities. 2. Cerebral volume loss and chronic microvascular ischemic changes. 3. Left maxillary and ethmoid sinus disease. No significant discrepancy with the shirt folder radiology preliminary report. Dictated and approved by: Chris Melendez M.D. on 09/16/2016 at 7:13 . Cardiac Echo Impression (09/17/16) ECHOCARDIOGRAM Interpretation Summary There is mild concentric left ventricular hypertrophy. The left ventricle is normal in size. Left ventricular ejection fraction is estimated to be 50 +/- 5%. Septal motion is consistent with conduction abnormality. Mild distal anteroseptal hypokinesis is noted, this was not reported on prior exam Both atria are severely dilated. There is moderate to severe aortic regurgitation. Right ventricular systolic pressure is estimated to be 20 mmHg plus the clinically estimated CVP which cannot be estimated on this exam. Reading Physician: Gerry Crawford on 09/17/2016 05:05 PM Brief History The following is taken from Dr. Curiel's H&P dated 09/16/2016: Kuldeep Mccartney 86 year old male with Thromboembolic disease with DVT, Hypertension , who presents to [facility] emergency department via EMS from [facility] living [facility] due to generalized weakness onset today. Patient is independently ambulatory at baseline but states that he has lately been unable to walk due to profound weakness within the last 3 days. He denies chest pain, nausea, vomiting, cough, changes in vision, abdominal pain, and changes in bowel or urinary habits. Nurses at [facility] deny any known recent illness, or fever. BP in the 180's en route. No new medications started. Patient seems to think its old age and deconditioning. He denies any palpitations. Case discussed with Dr Patel, EKG showed Atrial fibrillation (new) and will be admitted to workup cause of weakness Hospital Course 1. Second degree AV block, not present on admission. Active. -Patient presented in A. fib with RVR and associated weakness. Over the course of hospitalization patient was managed as needed with rate control medications, and medication for blood pressure (consisting of at least 1 dose of hydralazine) . Throughout he is monitored on telemetry, and it was noted on the day prior to discharge that (as he converted into a somewhat more sinus rate) he had a second-degree AV block consistent with Jeremy Schwab. Case was discussed with cardiology, and upon confirmation of Wenke Josselin, decision made to proceed without further intervention or medication changes the patient was asymptomatic. 2. Paroxysmal atrial fibrillation, new onset. Present on admission. Active. -Negative workup including unremarkable troponin, echocardiogram, negative thyroid function studies. Periods of intermittent bradycardia, and for that reason metoprolol was initially held, but continued to assess for response prior to discharge. Chads vast score of 1 (based on his hypertension), and therefore no anticoagulation indicated. Continue patient's aspirin Consideration for outpatient stress test given echo findings. 3. Generalized weakness, unknown chronicity. Present on admission. Active. -Gradual improvement of this multifactorial symptom (equal degrees of malnutrition and deconditioning in the setting of new A. fib and AV block) with physical therapy, and patient demonstrated gait stability with the use of a walker, and appropriate for return to [facility]. Home health support provided at time of discharge. 4. Elevated troponins, acute. Present on admission. Active -Nonspecific. Patient's clinical status stabilized as noted above. There is some consideration for pursuing stress test while in the hospital, but given his stable condition, decision made to consider further diagnostic evaluation in the outpatient setting. Please note echocardiogram findings above. 5. Hypertension, chronic. Present on admission. Presumed stable. -Patient's blood pressure was managed intermittently throughout hospitalization with hydralazine (and the continuation of his home amlodipine). The reason for this is his occasional bradycardia which limited the use of his home beta florecita. However, we successfully restarted his metoprolol prior to discharge, and patient demonstrated stability. 6. Thromboembolic disease, chronic. Present on admission. Presumed stable. -No sign of progression, or new onset disease. Heparin for prophylaxis. 7. Moderate protein calorie malnutrition, chronic. Present on admission. Presumed stable. -Patient demonstrated appropriate appetite, and declined restarting CBD as an appetite stimulator. 8. Deconditioning, chronic. Present on admission. Presumed stable. -As noted above, patient progressed gradually with physical therapy, and was appropriate for discharge home with the use of his home walker. At time of discharge, the patient was eating and drinking without complication, voiding and stooling without apparent problem, ambulating with the use of the walker, not demonstrating any gait instability. Medications were being dosed regularly, and patient was tolerating all medications appropriately. Exam Vital Signs (Last) Date Time Temp Pulse Resp B/P Pulse Ox O2 Delivery O2 Flow Rate FiO2 09/20/16 16:10 36.9 51 16 143/66 97 Room Air Exam Physical exam on the day of discharge: General: Frail, elderly male in no acute distress. Alert and appropriately interactive. HEENT: Normocephalic, contusion of forehead on left just above eyebrow (healing well), PERRLA. Mucosa moist/pink. Neck: Supple, nontender, no JVD. Cardiovascular: Regular rate, irregular rhythm on the monitor, normal S1/S2, no murmurs, rubs or gallops appreciated Pulmonary: Symmetric chest rise, normal breath sounds, lungs clear to auscultation bilaterally. Abdomen: Benign Extremities: No edema, no cyanosis, no clubbing. Skin: Warm and dry, no erythema, rashes or ulcerations. Neurological: Generalized weakness without focal deficit. Normal Speech. Test 09/15/16 22:10 09/16/16 00:00 09/17/16 08:30 09/20/16 03:40 Hold Purple Top Tube Received (Received) Hold Blue Top Tube Received (Received) Lactic Acid Level 1.1mmol/L (0.4-2.0) Uric Acid 6.4mg/dL (2.6-7.2) Ammonia 34ug/dL (18-53) Thyroid Stimulating Hormone (TSH) 2.360uIU/mL (0.450-4.500) Hold Red Top Tube Received (Received) Hold [place] Top Tube Received (Received) Alcohols < 10mg/dL (0-10) Urine Color Yellow (YELLOW) Urine Appearance Clear (CLEAR,HAZY) Urine pH 6.5 (5.0-8.0) Urine Specific [place] 1.015 (1.003-1.035) Urine Protein Negativemg/dL (NEG,TRACE) Urine Glucose (UA) Negativemg/dL (NEGATIVE) Urine Ketones Negativemg/dL (NEGATIVE) Urine Occult Blood Negative (NEGATIVE) Urine Nitrite Negative (NEGATIVE) Urine Bilirubin Negative (NEGATIVE) Urine Urobilinogen 1.0mg/dL (NORMAL) Urine Leukocyte Esterase Negative (NEGATIVE) Urine RBC 0-2/hpf (0-2) Urine WBC 0-5/hpf (0-5) Urine Epithelial Cells Occasional/hpf (NONE-MOD) Urine Crystals None seen (NONE SEEN) Urine Bacteria None/hpf (NONE-FEW) Urine Hyaline Casts None/lpf (NONE) Urine Granular Casts None seen (NONE SEEN) Urine Waxy Casts None seen (NONE SEEN) Urine Red Blood Cell Casts None seen (NONE SEEN) Urine White Blood Cell Casts None seen (NONE SEEN) Urine Mucus None seen (None Seen) Urine Trichomonas None seen (NONE SEEN) Urine Yeast None (NONE SEEN) Urinalysis Comment None Urine Culture Reflexed Not indicated Troponin T 0.032ug/L (0.0-0.011) White Blood Count 4.5th/mm3 (3.8-10.1) Red Blood Count 4.28mil/mm3 (4.40-5.80) Hemoglobin 13.0g/dL (13.8-17.2) Hematocrit 38.6% (41.0-50.0) Mean Corpuscular Volume 90.2fL (81-100) Mean Corpuscular Hemoglobin 30.4pg (27.0-35.0) Mean Corpuscular Hemoglobin Concent 33.7% (32.0-37.0) Red Cell Distribution Width 13.1% (12.3-15.4) Platelet Count 182bil/L (150-400) Neutrophils (%) (Auto) 45.6% (40-74) Lymphocytes (%) (Auto) 30.4% (14-46) Monocytes (%) (Auto) 16.2% (4-12) Eosinophils (%) (Auto) 6.7% (0-5) Basophils (%) (Auto) 0.9% (0-3) Sodium Level 137mEq/L (134-144) Potassium Level 4.1mEq/L (3.5-5.2) Chloride Level 103mEq/L (97-108) Carbon Dioxide Level 19mmol/L (18-29) Blood Urea Nitrogen 23mg/dL (8-27) Creatinine 0.88mg/dL (0.76-1.27) Estimat Glomerular Filtration Rate 87mL/min (>59) Glucose Level 98mg/dL (60-99) Calcium Level 8.8mg/dL (8.5-10.1) Magnesium Level 2.2mg/dL (1.6-2.6) Total Bilirubin 0.9mg/dL (0.0-1.2) Aspartate Amino Transf (AST/SGOT) 16U/L (0-50) Alanine Aminotransferase (ALT/SGPT) 9U/L (0-44) Alkaline Phosphatase 50U/L (25-160) Total Protein 5.5g/dL (6.4-8.4) Albumin 3.4g/dL (3.4-5.0) Microbiology Results 09/15/16 Blood Culture - No growth at 2 days Discharge Medications Discharge Medications Amlodipine (Norvasc) 5 Mg Tablet 5 MG PO DAILY Prescribed by: ALVINO LOPEZ, Aspirin (Aspirin) 325 Mg Tablet 325 MG PO DAILY (Reported) Citalopram Hydrobromide (Celexa) 20 Mg Tablet 20 MG PO DAILY (Reported) Gabapentin (Gabapentin) 100 Mg Capsule 200 MG PO QAM (Reported) Lisinopril (Lisinopril) 20 Mg Tablet 20 MG PO QAM (Reported) Metoprolol Succinate ER (Metoprolol Succinate ER) 25 Mg Tab.er.24h 25 MG PO QAM (Reported) Prednisone (Deltasone) 20 Mg Tablet 20 MG PO 2x/week (Reported) Additional med instructions No medication changes at this time. Please continue all your home medications as before. Followup Plan Disposition: Home Follow-up plan Please follow up with Dr. Herrera, your primary doctor, within 1 week to discuss your hospitalization. * I will send a summary of your hospital course, and recommendations to Dr. Herrera prior to your follow up visit. Discharge Diet: Heart Healthy Discharge Activity: No restrictions (Use the walker.) Time spent Greater than 30 minutes was spent in preparation of discharge with greater than 50% of that time dedicated to patient counseling and coordination of care. . Attending Statement The patient was seen and examined together with Dr. Alvarenga on 09/20/2016 and I agree with the history, exam and plan as outlined in the note above. . copies to: Adalgisa Herrera MD, Collin T DO September 21, 2016 14:43 Willie Elena MD September 21, 2016 17:01
== END 2016-09-20 16:45 | disposition home or self-care (01) | DRG 309 ==
LOC: SED 22:02 → INTOOBSV 09-16 02:09 → PCC 09-16 02:09 → OBSVTOIN 09-16 02:09
PROVIDERS: ADMIT Hospitalist; ATTEND Hospitalist
DX: I48.0 Paroxysmal atrial fibrillation (principal); E44.0 Moderate protein-calorie malnutrition; I44.1 Atrioventricular block, second degree; S00.81XA Abrasion of other part of head, initial encounter; W18.30XA Fall on same level, unspecified, initial encounter; I10 Essential (primary) hypertension; Z68.24 Body mass index [BMI] 24.0-24.9, adult; Y92.009 Unspecified place in unspecified non-institutional (private) residence as the place of occurrence of the external cause; Z91.81 History of falling; Z86.718 Personal history of other venous thrombosis and embolism

== ENCOUNTER 2016-10-10 10:09 | Emergency (ER) | payer MEDICARE ==
[~2016-10-10] VITALS: Ht 182.9 cm; Wt 86.4 kg
[~2016-10-10 10:09] MED LIST changes: +ASPI325T32 PO; +CITA20TA PO; -DOCU250C2 PO; +GABA-500 PO; -LEVO750T39 PO; +LISI-567 PO; -LOV120 SUBQ; +METO25TA99 PO; -METO50TA3 PO; -Nystatin PO; +PRED-508 PO
[2016-10-10 10:21] VITALS: BP 177/68; PULSE 53; RESP 20; O2SAT 98
--- NOTE | 2016-10-10 10:43 | ED.REPORT ---
HPI-Trauma Minor / Fall Date of Service Oct 10, 2016 ED Provider: Zachary Rueda MD Pt is an 86 y.o. male with a hx of HTN and anemia who presents to the ED after a GLF. Pt has associated head injury and left elbow injury. Pt states that he doesn't know how he fell but he denies LOC and syncope and was ambulatory after falling. He also denies weakness, headache, nausea, and neck pain. Pt states his tetanus is up to date. Family in room states that pt has "balance problems" and falls frequently. Denies taking blood thinners. Nursing Notes Stated Complaint: GLF, BUMP ON HEAD, BLOOD PRESSURE Chief Complaint: Multiple Trauma/Fall Nursing Notes Reviewed: Yes Allergies: Coded Allergies: No Known Allergies (Verified Allergy, Unknown, 10/10/16) Scheduled Amlodipine (Norvasc) 5 Mg Tablet 5 MG PO DAILY Aspirin (Aspirin) 325 Mg Tablet 325 MG PO DAILY Citalopram Hydrobromide (Celexa) 20 Mg Tablet 20 MG PO DAILY Gabapentin (Gabapentin) 100 Mg Capsule 200 MG PO QAM Lisinopril (Lisinopril) 20 Mg Tablet 20 MG PO QAM Metoprolol Succinate ER (Metoprolol Succinate ER) 25 Mg Tab.er.24h 25 MG PO QAM Prednisone (Deltasone) 20 Mg Tablet 20 MG PO 2x/week General Time Seen by MD: 10:41 Chief Complaint Fall Hx Obtained From: Patient Arrived By: Walk-in Onset Occurred: Just prior to arrival Caused by: Accidental Risk Factors IC Bleed Risk Stratification Risk factors reviewed Head CT Imaging RF Statements: Risk factors reviewed Past Medical History Past Medical History 1. Thromboembolic disease. 2. Traumatic left shoulder rotator cuff tear and multiple left shoulder tendon tears while on anticoagulant therapy. a. Left shoulder hematoma. b. Acute volume loss due to left shoulder soft tissue bleeding. 3. Syncope due to acute volume loss (02/25/2014). 4. Gram-positive (Staphylococcus aureus) sepsis (02/27/2014). 5. Acute kidney injury. a. 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 b. Consider acute tubular necrosis due to sepsis, but no other sequela. 6. Hypokalemia in the context of interstitial nephritis. 7. Anemia. a. Acute blood loss anemia due to soft tissue bleeding (02/25/2014). b. Anemia of chronic disease (Staphylococcal sepsis). 8. Pancreatic cystic mass of uncertain etiology. CT of the abdomen (02/27/2014) showed an exophytic low density focus protruding superiorly from the pancreatic body/tail junction (20 mm diameter). This lesion demonstrates precontrast Hounsfield units of 1, and post contrast Hounsfield units of 15, suggestive of enhancement. No pancreatic ductal dilatation. No other lesions within the pancreas. No pancreatic calcifications. 9. Asymptomatic candiduria (03/17/2014). 10. Moderate protein calorie malnutrition. 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 Colonoscopy (03/03/2014) was essentially normal. Pseudo-obstruction resolved. 12. Severe deconditioning. 13. sepsis 14. rash 15. DVT Reports: Hypertension Past Surgical History Inguinal hernia: 1969 Smoking History Never Smoker Social History Alcohol Use: Denies alcohol use Drug Use: Denies drug use Other Social History: Good social support, , Lives in [facility] Ambulatory Status Cane Review of Systems Head injury Left elbow injury GLF Constitutional: Denies: Weakness - generalized Musculoskeletal: Denies: Neck pain Neurologic: Denies: Change LOC, Headache, Syncope Complete sys rev & neg: except as marked. GI: Denies: Nausea Physical Exam Initial Vital Signs Vital Signs (First) Date Time Temp Pulse Resp B/P Pulse Ox O2 Delivery O2 Flow Rate FiO2 10/10/16 10:21 36.0 53 20 177/68 98 Room Air Initial VS: Reviewed Abdomen / GI: No distention Extremities: Vascular intact, Neuro intact Skin: Warm, Dry, No cyanosis Psychiatric: Mood/affect normal, Behavior normal, Normal thought content General/Constitutional: Awake, Alert, No acute distress, Well appearing, Well developed, Well hydrated, Well nourished, Not toxic appearing Neck: Atraumatic, Supple, Full range of motion, No midline vertebral tend Head / Eyes: Normocephalic, PERRL, EOMI Trauma - General: Positive: Contusion (Left forehead) Respiratory / Chest: Atraumatic, Breath sounds NL, Breath sounds = bilat, No respiratory distress Cardiovascular: Heart rate NL, Regular rhythm, Heart sounds NL, Cap refill not delayed, Peripheral circulation NL Upper Extremity / MS: No deformity, Neurologic intact, Vascular intact Trauma / Burn / Environmental: Positive: Abrasion (Left elbow) No bony tenderness Neurologic: Oriented X3, Speech NL, No motor deficits, CN II - XII intact No facial droop No laterizing neurologic findings Interpretation & Diagnostics PROCEDURE: MRI BRAIN WITH AND WITHOUT CONTRAST ([id number]) IMPRESSION: 1. 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 Given the lesion was not visible on the prior CT dated 09/15/2016, it may have bleed during the interval. Traumatic brain contusion is felt less likely but not entirely excluded. There is no cerebral edema or mass effect. 2. Moderate cerebral volume loss and chronic microvascular ischemic changes. Dictated by: Chris Melendez M.D. on 10/10/2016 at 13:38 Approved by: Chris Melendez M.D. on 10/10/2016 at 14:01 Lab Results Interpretation Result Diagram: 10/10/16 1153 Test 10/10/16 11:53 Sodium Level 140mEq/L (134-144) Potassium Level 4.3mEq/L (3.5-5.2) Chloride Level 102mEq/L (97-108) Carbon Dioxide Level 24mmol/L (18-29) Blood Urea Nitrogen 28mg/dL (8-27) Creatinine 1.01mg/dL (0.76-1.27) Estimat Glomerular Filtration Rate 74mL/min (>59) Glucose Level 92mg/dL (60-99) Calcium Level 9.4mg/dL (8.5-10.1) CT Head Interpretation IMPRESSION: Small hyperdensity in the right parietal subcortical white matter represent small acute bleed versus partially calcified lesion such as cavernous angioma. Dictated by: Celeste Alicea MD, PhD on 10/10/2016 at 11:08 Approved by: Celeste Alicea MD, PhD on 10/10/2016 at 11:13 Re-Eval/Medical Decision Source of Hx: Old records Re-Evaluation/Progress #1: Time of Eval: 11:32 Re-Evaluation/Progress Note: Discussed CT imaging with pt and family and need for MRI. Pt understands and agrees with plan. Re-Evaluation/Progress #2: Time of Eval: 15:10 Re-Evaluation/Progress Note: Discussed MRI results and need for consult with neurosurgeon. Consultation #1: Call Returned at: 15:38 Note: Consulted with [facility]. They will review pt imaging and return call with recommendations. Consultation #2: Call Returned at: 17:00 Note: Dr. eVlasco, [facility] neurology, returned call regarding pt imaging. Cavernous angioma commonly bleed small amounts and typically do not require intervention. Intervention indicacted for brain regions that are "eloquent" in that small lesions can have siginficant effects or for frequent seizures. Recommends pt be discharge, no need for neurosurg follow-up. Counseled Regarding: Diagnosis, Lab results, Need for follow-up, When/why to return to ED Discharge & Departure Impression: Primary Impression: Fall from ground level Additional Impression: Cavernous angioma Disposition: Home Discharge Condition All VS Reviewed: Yes Condition: Improved Patient Instructions: Fall Prevention for Older Adults (ED) Additional Instructions: Thank you for entrusting us with your care today. I discussed your imaging with a neurologist from [facility] and they stated that it was reassuring. It appears that you have a something called a cavernous angioma, which is common and prone to small amounts of bleeding. This generally requires no neurosurgical intervention. If you are seen again for a ground level fall have your provider refer back to this visit. I recommend you keep hydrated as your labs showed mild dehydration. Return if you experience a seizure, increasing pain, severe headaches, or any new or worsening symptoms. Referrals: Adalgisa Herrera MD (PCP) Herminia Attestation Portions of this note were transcribed by Joanne Hurst. I, Dr. Rueda personally performed the history, physical exam and medical decision-making; I reviewed and confirmed the accuracy of the information in the transcribed note. Signed by: Herminia Rubio, 10/10/16 and 0190. copies to: Adalgisa Herrera MD, Donald L MD Oct 10, 2016 10:43 JOANNE HURST Oct 10, 2016 10:50
[2016-10-10] MEDS ORDERED: Bacitracin Ointment Packet TOPICAL ONE (10:50)
--- NOTE | 2016-10-10 11:15 | DRSVH ---
PROCEDURE: CT BRAIN WITHOUT CONTRAST ([id number]) INDICATIONS: fall and head injrury TECHNIQUE: Noncontrast 4.5 mm thick angled axial sections acquired from the foramen magnum to the vertex, with c oronal reformats. COMPARISON: [facility], CT, CT BRAIN WO CON, 09/15/2016, 22:27. [facility], CT, CT BRAIN WO CON, 09/05/2016, 15:32. FINDINGS: Image quality: Excellent. CSF spaces: Basal cisterns are patent. No extra-axial fluid collections. The ventricles are symmet jesus manuel in size and shape. Brain: Small, approximately 5 mm in diameter hyperdensities noted in the right parietal lobe (series 4, image 34; series 2, image 22) which may represent a small parenchymal hematoma. No intracranial masses. There is cerebral volume loss for age, with resultant ventricular and sulcal prominence. Th ere are periventricular and deep white matter chronic small vessel ischemic changes. There is intrac ranial internal carotid artery atherosclerosis. Skull and face: Calvarium and visualized facial bones appear intact, without suspicious lesions. Sma ll left frontal scalp hematoma is noted. Sinuses: Visualized sinuses and mastoids are clear. IMPRESSION: Small hyperdensity in the right parietal subcortical white matter represent small acute bleed versus partially calcified lesion such as cavernous angioma. Dictated by: Celeste Alicea MD, PhD on 10/10/2016 at 11:08 Approved by: Celeste Alicea MD, PhD on 10/10/2016 at 11:13
[2016-10-10] MEDS ORDERED: 0.9% Sodium Chloride 1,000 ML IV ONE (12:50)
[2016-10-10 13:45] VITALS: BP 160/50; PULSE 57; O2SAT 98
--- NOTE | 2016-10-10 15:02 | DRSVH ---
PROCEDURE: MRI BRAIN WITH AND WITHOUT CONTRAST ([id number]) INDICATIONS: Head injry, small bleed suspect on CT TECHNIQUE: Noncontrast axial T1 spin echo, axial T2 fast spin echo, sagittal and axial FLAIR, coronal T2 fast sp in echo, axial gradient echo, axial diffusion and ADC through the brain. After the administration of contrast, axial and coronal T1 spin echo with fat saturation through the brain. COMPARISON: [facility], CT, CT BRAIN WO CON, 09/05/2016, 15:32. [facility], CT, CT BRAIN WO CON, 09/15/2016, 22:27. [facility], CT, CT BRAIN WO CON, 10/10/2016, 11:00 . FINDINGS: Image quality: Excellent. CSF spaces: Basal cisterns are patent. No extra-axial fluid collections. Ventricles are normal in size and shape. Brain: There is a single small focus of susceptibility artifact on gradient echo sequences in the ri ght parietal lobe consistent with presence of hemosiderin product. On other sequences, the lesion is vaguely conspicuous with subtle peripheral T2 hyperintensity and central hypointensity. On postcontra st images, there is It is no definitive enhancement. On DWI, there is no abnormal signal. The MRI fi ndings are most likely a small cavernous angioma. No mass effect or midline shift. No intracranial m asses. No abnormal intracranial enhancement. There is moderate cerebral volume loss for age. There are moderate periventricular white matter chronic small vessel ischemic changes. The brainstem appe ars normal. Diffusion-weighted images demonstrate no acute ischemic insults. No chronic ischemic in sults. Normal intravascular flow voids are present. Skull and face: Calvarial marrow is normal in signal. Orbits appear normal. Sinuses: Sinuses and mastoids appear clear. IMPRESSION: 1. 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 Given the lesion was not visible on the prior CT dated 09/15/2016, it may have bleed during the interval. Traumatic brain contusion is fel t less likely but not entirely excluded. There is no cerebral edema or mass effect. 2. Moderate cerebral volume loss and chronic microvascular ischemic changes. Dictated by: Chris Melendez M.D. on 10/10/2016 at 13:38 Approved by: Chris Melendez M.D. on 10/10/2016 at 14:01
[2016-10-10 16:32] VITALS: BP 185/65; PULSE 56; O2SAT 98
[2016-10-10 17:29] VITALS: BP 185/65; PULSE 56; RESP 20; O2SAT 98
== END 2016-10-10 17:34 | disposition home or self-care (01) ==
LOC: SED 10:09
DX: D18.02 Hemangioma of intracranial structures (principal); S09.90XA Unspecified injury of head, initial encounter; S50.312A Abrasion of left elbow, initial encounter; W18.30XA Fall on same level, unspecified, initial encounter; Y92.9 Unspecified place or not applicable; Y93.89 Activity, other specified; Y99.8 Other external cause status; I10 Essential (primary) hypertension; D64.9 Anemia, unspecified; E87.6 Hypokalemia; Z91.81 History of falling; Z86.718 Personal history of other venous thrombosis and embolism; Z86.19 Personal history of other infectious and parasitic diseases; Z79.82 Long term (current) use of aspirin
CPT/HCPCS: 36415; 70450; 70553; 80048; 96360; 99285; A9585; J7030